=== PATIENT | female | born 1940 | race Caucasian/White ===

== ENCOUNTER 2016-06-26 08:09 | Outpatient (CLI) | payer MEDICARE, OTHER | END 2016-06-26 08:10 | disposition home or self-care (01) | DX: R03.0 Elevated blood-pressure reading, without diagnosis of hypertension (principal); E78.5 Hyperlipidemia, unspecified; Z79.899 Other long term (current) drug therapy ==

== ENCOUNTER 2016-09-09 10:34 | Outpatient (CLI) | payer MEDICARE, OTHER ==
--- NOTE | 2016-09-10 12:47 | Mammography Report ---
DIGITAL SCREENING MAMMOGRAM: 09/09/2016 CLINICAL INDICATION: A 75-year-old with family history of breast cancer for screening. COMPARISON: 01/2015, 12/2013, 06/2012, 05/2011, 10/2009, 04/2008, 11/2006. TECHNIQUE: Routine CC and MLO projections were obtained of the breasts. FINDINGS: Parenchymal tissue within the breasts is predominantly fatty replaced. There are no domina nt masses, suspicious microcalcifications, or secondary signs of malignancy. In comparison to the pre vious studies, there are no significant changes. IMPRESSION: NO MAMMOGRAPHIC EVIDENCE OF MALIGNANCY. NO SIGNIFICANT INTERVAL CHANGES. RECOMMENDATION: Screening mammography is recommended annually. BI-ADS category 1 - negative. STANDARD QUALIFYING STATEMENTS 1. This examination was reviewed with the aid of Computed-Aided Detection (CAD). 2. A negative or benign imaging report should not delay biopsy if clinically suspicious findings are present. Consider surgical consultation if warranted. More than 5% of cancers are not identified by i maging. 3. Dense breasts may obscure an underlying neoplasm. JOB #: [id number] EXT JOB #:[id number]
== END 2016-09-09 10:35 | disposition home or self-care (01) ==
LOC: DI 10:34
PROVIDERS: ATTEND Internal Medicine
DX: Z12.31 Encounter for screening mammogram for malignant neoplasm of breast (principal); Z80.3 Family history of malignant neoplasm of breast
CPT/HCPCS: 77067

== ENCOUNTER 2017-09-15 08:39 | Outpatient (CLI) | payer MEDICARE, OTHER ==
[2017-09-15 08:55] LABS: BASOPHILS # (AUTO) 0.1 10^3/uL (0.0-0.1); EOSINOPHILS # (AUTO) 0.1 10^3/uL (0.0-0.7); EOSINOPHILS % (AUTO) 1.3 %; HGB - HEMOGLOBIN 13.7 g/dL (12.0-16.0); LYMPHOCYTES # (AUTO) 2.4 10^3/uL (1.5-3.5); LYMPHOCYTES % (AUTO) 31.6 %; MEAN CORPUSCULAR HGB CONC 33.4 g/dL (32.0-36.0); MEAN CORPUSCULAR VOLUME 101.6 fL (81.0-99.0); MONOCYTES # (AUTO) 0.7 10^3/uL (0.0-1.0); MONOCYTES % (AUTO) 8.9 %; NEUTROPHILS # (AUTO) 4.3 10^3/uL (1.5-6.6); NEUTROPHILS % (AUTO) 57.2 %; PLT - PLATELET COUNT 233 10^3/uL (130-450); RED BLOOD COUNT 4.03 10^6/uL (4.20-5.40); RED CELL DISTRIBUTION WIDTH 13.5 % (12.0-15.0); WHITE BLOOD COUNT 7.5 x10^3/uL (4.8-10.8)
[2017-09-15 09:03] LABS: BILIRUBIN,URINE NEGATIVE (NEGATIVE); GLUCOSE, URINE (UA) NEGATIVE (NEGATIVE); KETONES,URINE (UA) TRACE mg/dL (NEGATIVE); LEUKOCYTE ESTERASE, URINE TRACE (NEGATIVE); NITRITE,URINE NEGATIVE (NEGATIVE); OCCULT BLOOD,URINE NEGATIVE (NEGATIVE); PH,URINE 6.5 PH (5.0-7.5); PROTEIN,URINE NEGATIVE (NEGATIVE); UROBILINOGEN,URINE 0.2 (NORMAL) E.U./dL (NORMAL)
[2017-09-15 09:07] LABS: CLARITY,URINE CLEAR (CLEAR)
[2017-09-15 09:14] LABS: ALBUMIN 4.3 g/dL (3.2-5.5); ALBUMIN/GLOBULIN RATIO 1.4 (1.0-2.2); ALKALINE PHOSPHATASE 45 IU/L (42-121); ALT ALANINE AMINOTRANSFERASE 20 IU/L (10-60); AST ASPARTATE AMINOTRANSFERASE 21 IU/L (10-42); BILIRUBIN,TOTAL 0.9 mg/dL (0.2-1.0); BUN - BLOOD UREA NITROGEN 15 mg/dL (6-20); CALCIUM 9.4 mg/dL (8.5-10.3); CARBON DIOXIDE - CO2 27 mmol/L (21-32); CHLORIDE 104 mmol/L (101-111); CHOL/HDL RATIO 2.3 (<4.4); CHOLESTEROL 189 mg/dL; CK- CREATINE KINASE 94 IU/L (22-269); CREATININE 0.7 mg/dL (0.4-1.0); GFR - MDRD 81 (>89); GLUCOSE 109 mg/dL (70-100); HDL CHOLESTEROL 83 mg/dL; LDL CHOLESTEROL,CALCULATED 85 mg/dL; SODIUM 140 mmol/L (135-145); TOTAL PROTEIN 7.4 g/dL (6.7-8.2); VLDL CHOLESTEROL 21 mg/dL
[2017-09-15 09:27] LABS: BACTERIA,URINE Moderate /HPF (None Seen); RBC,URINE 0-5 /HPF (0-5); SQUAMOUS EPITHELIAL CELL,UR MANY Squamous (<= Few)
[2017-09-15 09:28] LABS: MUCUS,URINE Few Strands
== END 2017-09-15 08:40 | disposition home or self-care (01) ==
LOC: LAB 08:39
PROVIDERS: ATTEND Internal Medicine
DX: Z79.899 Other long term (current) drug therapy (principal); Z13.6 Encounter for screening for cardiovascular disorders; J30.2 Other seasonal allergic rhinitis; E78.5 Hyperlipidemia, unspecified; E87.6 Hypokalemia; C44.91 Basal cell carcinoma of skin, unspecified
CPT/HCPCS: 36415; 80053; 80061; 81001; 81003; 82550; 83721; 84443; 85025; 87086

== ENCOUNTER 2017-10-12 13:20 | Outpatient (CLI) | payer MEDICARE, OTHER ==
--- NOTE | 2017-10-13 15:24 | Mammography Report ---
Procedure Date: 10/12/2017 Accession Number: [id number] / [id number] Procedure: MARTHA - Screening Mammo Dig Bilat CPT Code: FULL RESULT: EXAM: Screening Mammo Dig Bilat DATE: 10/12/2017 1:48 PM CLINICAL HISTORY: 76-year-old with family history of breast cancer for screening TECHNIQUE: Bilateral CC and MLO views were obtained. COMPARISON: 09/09/2016, 01/25/2015, 12/12/2013, 06/11/2012, 05/09/2011 FINDINGS: The breasts demonstrate scattered fibroglandular densities bilaterally. No suspicious masses, clustered microcalcifications, or regions of architectural distortion are identified. IMPRESSION: Negative examination RECOMMENDATION: Routine annual screening unless otherwise clinically indicated. BIRADS CATEGORY 1: Negative STANDARD QUALIFYING STATEMENTS: 1. This examination was reviewed with the aid of Computer-Aided Detection (CAD). 2. A negative or benign imaging report should not delay biopsy if clinically suspicious findings are present. Consider surgical consultation if warrented. More than 5% of cancers are not identified by imaging. 3. Dense breasts may obscure an underlying neoplasm.
== END 2017-10-12 13:21 | disposition home or self-care (01) ==
LOC: DI 13:20
PROVIDERS: ATTEND Internal Medicine
DX: Z12.31 Encounter for screening mammogram for malignant neoplasm of breast (principal)
CPT/HCPCS: 77067

== ENCOUNTER 2018-10-05 08:12 | Outpatient (CLI) | payer MEDICARE, OTHER ==
[2018-10-05 09:04] LABS: BILIRUBIN,URINE NEGATIVE (NEGATIVE); GLUCOSE, URINE (UA) NEGATIVE (NEGATIVE); KETONES,URINE (UA) NEGATIVE (NEGATIVE); LEUKOCYTE ESTERASE, URINE NEGATIVE (NEGATIVE); NITRITE,URINE NEGATIVE (NEGATIVE); OCCULT BLOOD,URINE NEGATIVE (NEGATIVE); PH,URINE 6.5 PH (5.0-7.5); PROTEIN,URINE NEGATIVE (NEGATIVE); UROBILINOGEN,URINE 0.2 (NORMAL) E.U./dL (NORMAL)
[2018-10-05 09:06] LABS: CLARITY,URINE CLEAR (CLEAR)
[2018-10-05 09:34] LABS: ALBUMIN 4.6 g/dL (3.2-5.5); ALBUMIN/GLOBULIN RATIO 1.8 (1.0-2.2); ALKALINE PHOSPHATASE 46 IU/L (42-121); ALT ALANINE AMINOTRANSFERASE 22 IU/L (10-60); AST ASPARTATE AMINOTRANSFERASE 22 IU/L (10-42); BILIRUBIN,TOTAL 0.9 mg/dL (0.2-1.0); BUN - BLOOD UREA NITROGEN 20 mg/dL (6-20); CALCIUM 9.1 mg/dL (8.5-10.3); CARBON DIOXIDE - CO2 26 mmol/L (21-32); CHLORIDE 104 mmol/L (101-111); CHOL/HDL RATIO 2.4 (<4.4); CHOLESTEROL 182 mg/dL; CK- CREATINE KINASE 144 IU/L (22-269); CREATININE 0.8 mg/dL (0.4-1.0); GFR - MDRD 69 (>89); GLUCOSE 108 mg/dL (70-100); HDL CHOLESTEROL 76 mg/dL; LDL CHOLESTEROL,CALCULATED 91 mg/dL; LDL/HDL RATIO 1.2 (<4.4); SODIUM 143 mmol/L (135-145); TOTAL PROTEIN 7.2 g/dL (6.7-8.2); VLDL CHOLESTEROL 15 mg/dL
[2018-10-05 09:43] LABS: BASOPHILS # (AUTO) 0.1 10^3/uL (0.0-0.1); BASOPHILS % (AUTO) 0.8 %; EOSINOPHILS # (AUTO) 0.1 10^3/uL (0.0-0.7); EOSINOPHILS % (AUTO) 1.5 %; HGB - HEMOGLOBIN 13.5 g/dL (12.0-16.0); LYMPHOCYTES % (AUTO) 29.5 %; MEAN CORPUSCULAR HEMOGLOBIN 33.9 pg (27.0-31.0); MEAN CORPUSCULAR HGB CONC 32.8 g/dL (32.0-36.0); MEAN CORPUSCULAR VOLUME 103.5 fL (81.0-99.0); MEAN PLATELET VOLUME 10.4 fL (7.9-10.8); MONOCYTES # (AUTO) 0.6 10^3/uL (0.0-1.0); MONOCYTES % (AUTO) 9.3 %; NEUTROPHILS # (AUTO) 3.9 10^3/uL (1.5-6.6); NEUTROPHILS % (AUTO) 58.6 %; PLT - PLATELET COUNT 234 10^3/uL (130-450); RED BLOOD COUNT 3.98 10^6/uL (4.20-5.40); RED CELL DISTRIBUTION WIDTH 12.9 % (12.0-15.0); THYROID STIMULATING HORMONE 2.37 uIU/mL (0.34-5.60); WHITE BLOOD COUNT 6.6 x10^3/uL (4.8-10.8)
[2018-10-05 09:54] LABS: FOLATE 15.6 ng/mL (5.90 - >24.8)
[2018-10-05 10:01] LABS: HB2 TOTAL 14.4 g/dL; HEMOGLOBIN A1C 0.59 g/dL; HEMOGLOBIN A1C % 5.9 % (4.6-6.2)
== END 2018-10-05 08:13 | disposition home or self-care (01) ==
LOC: LAB 08:12
PROVIDERS: ATTEND Internal Medicine
DX: I10 Essential (primary) hypertension (principal); Z13.6 Encounter for screening for cardiovascular disorders; Z79.899 Other long term (current) drug therapy; D75.89 Other specified diseases of blood and blood-forming organs; R73.01 Impaired fasting glucose; E78.5 Hyperlipidemia, unspecified
CPT/HCPCS: 36415; 80053; 80061; 81001; 81003; 82550; 82607; 82746; 83036; 83721; 84443; 85025; 87086

== ENCOUNTER 2018-10-27 14:11 | Outpatient (CLI) | payer MEDICARE, OTHER ==
--- NOTE | 2018-10-28 09:10 | Mammography Report ---
Reason: SCREENING MAMMO Procedure Date: 10/27/2018 Accession Number: [id number] / [id number] Procedure: MARTHA - Screening Mammo w/Leon CPT Code: FULL RESULT: EXAM: Screening Mammo w/Leon DATE: 10/27/2018 3:45 PM CLINICAL HISTORY: Screening encounter. Family history of breast cancer in the mother at the age of 80 and a daughter at the age of 40. TECHNIQUE: (B) - Bilateral CC and MLO views were obtained. COMPARISON: 10/12/2017 through 12/12/2013. PARENCHYMAL PATTERN: (A) - The breast(s) demonstrate(s) scattered fibroglandular densities. FINDINGS: There are no suspicious masses, calcifications, or areas of distortion. IMPRESSION: Negative examination. BI-RADS category 1. RECOMMENDATION: (ANNUAL) - Recommend routine annual screening mammography. BI-RADS CATEGORY: (1) - Negative. STANDARD QUALIFYING STATEMENTS: 1. This examination was not reviewed with the aid of Computer-Aided Detection (CAD). 2. A negative or benign imaging report should not preclude biopsy if clinically suspicious findings are present. 3. Dense breasts may obscure an underlying neoplasm. 4. This examination was reviewed with the aid of 3D breast imaging (tomosynthesis).
== END 2018-10-27 14:12 | disposition home or self-care (01) ==
LOC: DI 14:11
PROVIDERS: ATTEND Internal Medicine
DX: Z12.31 Encounter for screening mammogram for malignant neoplasm of breast (principal); Z80.3 Family history of malignant neoplasm of breast
CPT/HCPCS: 77063; 77067

== ENCOUNTER 2022-05-26 08:03 | Outpatient (CLI) | payer MEDICARE, OTHER ==
[2022-05-26 08:25] LABS: BASOPHILS # (AUTO) 0.1 10^3/uL (0.0-0.1); BASOPHILS % (AUTO) 0.8 %; EOSINOPHILS # (AUTO) 0.1 10^3/uL (0.0-0.7); EOSINOPHILS % (AUTO) 1.9 %; HCT - HEMATOCRIT 39.5 % (37.0-47.0); HGB - HEMOGLOBIN 12.6 g/dL (12.0-16.0); LYMPHOCYTES # (AUTO) 2.6 10^3/uL (1.5-3.5); LYMPHOCYTES % (AUTO) 33.8 %; MEAN CORPUSCULAR HEMOGLOBIN 33.8 pg (27.0-31.0); MEAN CORPUSCULAR HGB CONC 31.9 g/dL (32.0-36.0); MEAN CORPUSCULAR VOLUME 105.9 fL (81.0-99.0); MEAN PLATELET VOLUME 9.9 fL (7.9-10.8); MONOCYTES # (AUTO) 0.9 10^3/uL (0.0-1.0); MONOCYTES % (AUTO) 11.5 %; NEUTROPHILS # (AUTO) 3.9 10^3/uL (1.5-6.6); NEUTROPHILS % (AUTO) 51.6 %; PLT - PLATELET COUNT 259 10^3/uL (130-450); RED BLOOD COUNT 3.73 10^6/uL (4.20-5.40); RED CELL DISTRIBUTION WIDTH 13.3 % (12.0-15.0); WHITE BLOOD COUNT 7.5 x10^3/uL (4.8-10.8)
[2022-05-26 08:47] LABS: ALBUMIN 4.2 g/dL (3.2-5.5); ALBUMIN/GLOBULIN RATIO 1.5 (1.0-2.2); ALKALINE PHOSPHATASE 52 IU/L (42-121); ALT ALANINE AMINOTRANSFERASE 20 IU/L (10-60); AST ASPARTATE AMINOTRANSFERASE 20 IU/L (10-42); BILIRUBIN,TOTAL 1.1 mg/dL (0.2-1.0); BUN - BLOOD UREA NITROGEN 24 mg/dL (6-20); CALCIUM 8.8 mg/dL (8.5-10.3); CARBON DIOXIDE - CO2 28 mmol/L (21-32); CHLORIDE 103 mmol/L (101-111); CHOL/HDL RATIO 6.1 (<4.4); CHOLESTEROL 115 mg/dL; CK- CREATINE KINASE 75 IU/L (22-269); CREATININE 0.8 mg/dL (0.4-1.0); GFR - MDRD 69 (>89); GLUCOSE 118 mg/dL (70-100); HDL CHOLESTEROL 19 mg/dL; LDL CHOLESTEROL,CALCULATED 60 mg/dL; LDL/HDL RATIO 3.2 (<4.4); POTASSIUM 3.6 mmol/L (3.5-5.0); SODIUM 138 mmol/L (135-145); TRIGLYCERIDES 180 mg/dL; VLDL CHOLESTEROL 36 mg/dL
[2022-05-26 08:48] LABS: THYROID STIMULATING HORMONE 3.01 uIU/mL (0.34-5.60)
[2022-05-26 12:45] LABS: ESTIMATED AVERAGE GLUCOSE 91 mg/dL (70-100); HEMOGLOBIN A1c% 4.8 % (4.27-6.07)
== END 2022-05-26 08:04 | disposition home or self-care (01) ==
LOC: LAB 08:03
PROVIDERS: ATTEND Internal Medicine
DX: Z00.00 Encounter for general adult medical examination without abnormal findings (principal); F41.9 Anxiety disorder, unspecified; C44.91 Basal cell carcinoma of skin, unspecified; E78.5 Hyperlipidemia, unspecified; I10 Essential (primary) hypertension; R73.01 Impaired fasting glucose; D75.89 Other specified diseases of blood and blood-forming organs; R26.89 Other abnormalities of gait and mobility; J30.2 Other seasonal allergic rhinitis; Z79.899 Other long term (current) drug therapy
CPT/HCPCS: 36415; 80053; 80061; 82550; 82607; 83036; 83721; 84443; 85025

== ENCOUNTER 2024-01-31 09:58 | Inpatient (IN) ==
--- NOTE | 2024-01-31 10:02 | ED Physician Documentation ---
History of Present Illness Stated complaint Stated Complaint: AMS Chief complaint Chief Complaint: Neuro Additonal information Additional information: 83-year-old female with history of repeated falls, vitamin B12 deficiency anemia, regular alcohol consumption, PVD with chronic poor lower extremity circulation, depression presents with AMS with speech change. She was last seen normal at 8pm last night. Family found her this morning at home confused, speaking in what seemed like word salad. No clear trauma, F/C, SOB, focal numbness or weakness, lateralizing findings. CBG in 90s en route. No other currently available information. Lower extremity poor circulation is chronic. Patient here does not seem in pain but is confused and cannot provide further information. Note there are pictures in chart from January 20 with chronic bilateral foot discoloration. Review of Systems ROS Patient is altered and cannot provide further information. Meds/Allgy Home Medications Ambulatory Orders Medication Instructions Recorded Confirmed hydrochlorothiazide 25 mg tablet 25 mg PO QAM 01/21/24 01/31/24 simvastatin 20 mg tablet 20 mg PO QDAY 01/21/24 01/31/24 Allergies Allergies Allergy/AdvReac Type Severity Reaction Status Date / Time Penicillins Allergy Unknown Unknown Verified 01/31/24 10:32 [facility] Social History Social History (Updated 01/21/24 @ 08:31 by Lanre Ferreira MA) Smoking Status: Unknown if ever smoked Second hand tobacco smoke exposure: No Do you dip or chew tobacco?: No Do you vape?: No Living arrangement: At home Marital Status: Living Condition: With spouse/s.o. Relationship: Child Home Mobility Equipment: Wheeled walker Do you feel safe in your home environment?: Yes Suffered physical, verbal, emotional, or financial abuse?: No ETOH Use: Wine Frequency: Daily Number of Amount/day: 2 Substance Use: denies use Are you sexually active?: No Retired: Yes Service: No Are you following a diet prescribed by a doctor: No Are you following a special diet: No Exam Exam Const: no acute distress, non toxic appearing; confused, unable to participate in history Eyes: PERRLA, EOMI ENT: mucous membranes moist Neck: supple, non-tender Resp: no respiratory distress, clear to auscultation bilaterally Card: regular rate and rhythm, no murmurs Abd: non tender diffusely, no rigidity or rebound or guarding Back: no T or L spine tenderness, no CVA tenderness bilaterally Extrem: no deformities, no swelling bilateral lower extremities; chronic poor circulation consistent with chart images to distal extremities Neuro: alert, not oriented. 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 No rotatory or vertical nystagmus. Normal tone all extremities. Sensation intact to light touch all extremities. No ankle clonus bilaterally. 5/5 motor strength all extremities wit h equal movement, no lateralizing findings. Coordination difficult to assess but appears intact. No clear dysarthria however words are nonsensical and without clear order. Skin: no rash, warm and dry Results Vitals Vitals: Vital Signs - 24 hr 01/31/24 10:21 01/31/24 12:35 Temperature 37.0 C Temperature Source Temporal Artery Scan Pulse Rate 115 H 118 H Respiratory Rate 20 19 Blood Pressure 134/94 H 137/84 H O2 Saturation 98 98 O2 Source Room air Room air Pain Intensity 0 0 Oxygen O2 Source Room air Labs Labs: Laboratory Tests 01/31/24 10:29 WBC 14.4 H RBC 3.10 L Hgb 10.3 L Hct 33.2 L MCV 107.1 H MCH 33.2 H MCHC 31.0 L RDW 15.4 H Plt Count 99 L MPV 12.1 H Neut # (Auto) 9.9 H Lymph # (Auto) 1.9 [place] # (Auto) 2.5 H Eos # (Auto) 0.0 Baso # (Auto) 0.1 Absolute Nucleated RBC 0.00 Nucleated RBC % 0.0 Manual Slide Review Indicated RBC Morph Micro Appear 2+ ANISOCYTOSIS PT 12.8 H INR 1.2 APTT 24.1 L Sodium 139 Potassium 3.9 Chloride 106 Carbon Dioxide 25 Anion Gap 8.0 BUN 23 H Creatinine 0.6 Estimated GFR (MDRD) 95 Glucose 97 Calcium 8.9 Total Bilirubin 0.9 AST 16 ALT 10 Alkaline Phosphatase 53 Troponin I High Sens 7.4 Total Protein 6.1 L Albumin 3.4 Globulin 2.7 Albumin/Globulin Ratio 1.3 Triglycerides 314 Cholesterol 92 LDL Cholesterol, Calc Not Reportable VLDL Cholesterol 63 HDL Cholesterol 3 L LDL/HDL Ratio Not Reportable Cholesterol/HDL Ratio 30.7 Ethyl Alcohol < 10.0 PD Medical Decision Making ED course ED course: This patient presents with altered mental status and speech changes above, with last known normal 8 PM last night, arriving well outside thrombolytic window. She does not show clear LVO findings on exam. Ischemic stroke is possible, and we are obtaining CT head, CTA head and neck. I have considered broad di fferential as well including but not limited to intravascular volume depletion, delirium, UTI, electrolyte derangements, seizure, brain mass, renal failure, intoxication, among others. In addition to CT, we are obtaining chest x-ray, EKG, troponin, CBC, CMP, coags, ethanol level, urinalysis. I am giving fluids and will closely reassess. EKG shows atrial flutter versus fibrillation with rate within normal limits, no clear acute ischemia or immediately concerning interval prolongation in this setting. Labs: INR WNL. PTT mildly low. CBC with neutrophilic leukocytosis, mild anemia similar to prior earlier in January, macrocytic, thrombocytopenia to roughly 100 without clear bleeding clinically. CMP grossly reassuring. Troponin reassuring in clinical context. Ethanol negative. I agree with radiology reads of imaging on my independent review of imaging. CXR: "FINDINGS: Surgical changes and devices: None. Lungs and pleura: No pleural effusions or pneumothorax. Patchy bibasilar atelectasis. Mediastinum: Mediastinal contours appear normal. Heart size is normal. Bones and chest wall: No suspicious bony lesions. Overlying soft tissues appear unremarkable. IMPRESSION: Patchy bibasilar atelectasis Reviewed by: Savage Rosales MD on 01/31/2024 11:02 AM PDT" CT: note delay due to reported technical challenges; I requested this soon after patient arrival, and staff aware and working on it. Again, note patient does not show clear LVO signs to suggest thrombectomy candidacy and is outside thrombolytic window. hCT: "FINDINGS: Image quality: Excellent. CSF spaces: Basal cisterns are patent. No extra-axial fluid collections. Ventricles are normal in size and shape. Brain: No midline shift. No intracranial masses or hemorrhage. Whitman-white matter interface is normal. Intracranial carotid calcifications. Age-related volume loss and small vessel ischemic change. Skull and face: Calvarium and visualized facial bones are intact, without suspicious lesions. Sinuses: Visualized sinuses and mastoids are clear. IMPRESSION: No acute intracranial pathology. Reviewed by: Savage Rosales MD on 01/31/2024 12:37 PM PDT" CTA head/neck: "HEAD CT ANGIOGRAPHY: Anterior circulation: Intracranial internal carotid arteries are normal in size and flow. The flow within the paired anterior cerebral arteries is normal and symmetric. The flow within the middle cerebral arteries is normal and symmetric. The anterior communicating artery is seen. No aneurysms are seen. Posterior circulation: Visualized portions of the vertebral arteries demonstrate normal caliber, and join to form a normal appearing basilar artery. Flow within the posterior cerebral arteries is normal and symmetric. No aneurysms are seen. NECK CT ANGIOGRAPHY: Carotid system: The great vessels demonstrate a conventional anatomy as they arise from the aortic arch. The origins of the common carotid arteries appear patent. The common carotid arteries demonstrate normal caliber and courses. The bifurcation regions are both widely patent. The internal carotid arteries demonstrate normal calibers and courses. Posterior circulation: The origins of the vertebral arteries both appear widely patent. The more superior extracranial portions of both vertebral arteries also demonstrate normal courses and calibers. They join to form a normal appearing basilar artery. Soft tissues: Visualized neck soft tissues demonstrate no suspicious abnormalities. Bones: No suspicious bony lesions. Visualized cervical spine appears normally aligned. Diffuse cervical spondylitic change. Disc osteophyte complex at C4-C5 and C5-C6 results in severe canal stenosis at these levels, eccentric to the right. IMPRESSION: No significant intracranial arterial abnormality is seen. No significant abnormality is seen within the arteries of the neck. Cervical spondylosis with severe canal stenosis at C4-C5 and C5-C6. The estimate of stenosis included in the report of the imaging study was calculated using the NASCET method Reviewed by: Savage Rosales MD on 01/31/2024 12:40 PM PDT" Giving asprin. Note I was told patient had episode of bradycardia to 30s to 40s in scanner. This had not happened previous to this here, and she did not have clear symptoms during this. I repeated EKG however which shows atrial fibrillation currently with rate to 101, no clear acute ischemia. This is not consistent currently with symptomatic bradycardia. I spoke with Dr. Champagne at 1253; she reviewed case with me and kindyl accepts for admission. At this juncture, stroke is still possible, with patient outside room window, and she may benefit from inpatient MRI, echo, lipids and hemoglobin A1c; undifferentiated AMS is still possible though. Patient overall stable. NOTE intermittent logged tachycardia is NOT accurate; machine is picking up some T- waves as QRS complexes; HR is in 70s-90s on multiple assessments by myself, with afib. No meninegal signs. Note while I think Wernicke's encephalopathy is less likely, given history of reported alcohol use, I am giving 500 mg IV thiamine empirically. UA pending at this time. Discharge Plan Discharge Patient Disposition: 66 [facility] DC/Xfer Clinical Impression: Altered mental status Prescriptions: No Action simvastatin 20 mg tablet 20 mg PO QDAY Patient Comments: take 1 tablet by mouth at bedtime hydrochlorothiazide 25 mg tablet 25 mg PO QAM Patient Comments: take 1 tablet by mouth daily Print Language: Portuguese
[2024-01-31 10:36] LABS: BASOPHILS # (AUTO) 0.1 10^3/uL (0.0-0.1); BASOPHILS % (AUTO) 0.4 %; HCT - HEMATOCRIT 33.2 % (37.0-47.0); HGB - HEMOGLOBIN 10.3 g/dL (12.0-16.0); LYMPHOCYTES # (AUTO) 1.9 10^3/uL (1.5-3.5); LYMPHOCYTES % (AUTO) 12.9 %; MEAN CORPUSCULAR HEMOGLOBIN 33.2 pg (27.0-31.0); MEAN CORPUSCULAR VOLUME 107.1 fL (81.0-99.0); MEAN PLATELET VOLUME 12.1 fL (7.9-10.8); MONOCYTES # (AUTO) 2.5 10^3/uL (0.0-1.0); MONOCYTES % (AUTO) 17.3 %; NEUTROPHILS # (AUTO) 9.9 10^3/uL (1.5-6.6); NEUTROPHILS % (AUTO) 68.7 %; PLT - PLATELET COUNT 99 10^3/uL (130-450); RED CELL DISTRIBUTION WIDTH 15.4 % (12.0-15.0); WHITE BLOOD COUNT 14.4 x10^3/uL (4.8-10.8)
[2024-01-31 10:39] LABS: RBC MORPHOLOGY (MULTIPLE) 2+ ANISOCYTOSIS (NORMAL); SLIDE REVIEW? Indicated
[2024-01-31 10:49] LABS: ALBUMIN 3.4 g/dL (3.2-5.5); ALBUMIN/GLOBULIN RATIO 1.3 (1.0-2.2); ALKALINE PHOSPHATASE 53 IU/L (42-121); ALT ALANINE AMINOTRANSFERASE 10 IU/L (10-60); AST ASPARTATE AMINOTRANSFERASE 16 IU/L (10-42); BILIRUBIN,TOTAL 0.9 mg/dL (0.2-1.0); BUN - BLOOD UREA NITROGEN 23 mg/dL (6-20); CALCIUM 8.9 mg/dL (8.5-10.3); CARBON DIOXIDE - CO2 25 mmol/L (21-32); CHLORIDE 106 mmol/L (101-111); CREATININE 0.6 mg/dL (0.6-1.3); ETOH - ETHANOL < 10.0 mg/dL; GFR - MDRD 95 (>89); GLUCOSE 97 mg/dL (74-104); POTASSIUM 3.9 mmol/L (3.5-4.5); SODIUM 139 mmol/L (135-145); TOTAL PROTEIN 6.1 g/dL (6.4-8.9)
[2024-01-31 10:51] LABS: PARTIAL THROMBOPLASTIN TIME 24.1 secs (24.9-33.3)
[2024-01-31 10:56] LABS: INR 1.2 (0.8-1.2); PT - PROTHROMBIN TIME 12.8 secs (9.9-12.6)
--- NOTE | 2024-01-31 11:03 | XRAY Report ---
PROCEDURE: XR Chest 1V INDICATIONS: stroke work up TECHNIQUE: One view of the chest was acquired. COMPARISON: None. FINDINGS: Surgical changes and devices: None. Lungs and pleura: No pleural effusions or pneumothorax. Patchy bibasilar atelectasis. Mediastinum: Mediastinal contours appear normal. Heart size is normal. Bones and chest wall: No suspicious bony lesions. Overlying soft tissues appear unremarkable. IMPRESSION: Patchy bibasilar atelectasis Reviewed by: Savage Rosales MD on 01/31/2024 11:02 AM PDT Approved by: Savage Rosales MD on 01/31/2024 11:02 AM PDT Station ID: [id number]
[2024-01-31] MEDS ORDERED: iohexoL-300 100 ML VIAL ONE (11:10)
[2024-01-31] MEDS: SODIUM CHLORIDE 0.9% 500 ML IV STA (11:59)
--- NOTE | 2024-01-31 12:38 | CT Report ---
PROCEDURE: CT Head WO INDICATIONS: expressive aphasia, outside thrombolytic window TECHNIQUE: Noncontrast 4.5 mm thick angled axial sections acquired from the foramen magnum to the vertex. For r adiation dose reduction, the following was used: automated exposure control, adjustment of mA and/or kV according to patient size. COMPARISON: Head CT without contrast dated 01/08/2024. FINDINGS: Image quality: Excellent. CSF spaces: Basal cisterns are patent. No extra-axial fluid collections. Ventricles are normal in size and shape. Brain: No midline shift. No intracranial masses or hemorrhage. Whitman-white matter interface is norm al. Intracranial carotid calcifications. Age-related volume loss and small vessel ischemic change. Skull and face: Calvarium and visualized facial bones are intact, without suspicious lesions. Sinuses: Visualized sinuses and mastoids are clear. IMPRESSION: No acute intracranial pathology. Reviewed by: Savage Rosales MD on 01/31/2024 12:37 PM PDT Approved by: Savage Rosales MD on 01/31/2024 12:37 PM PDT Station ID: [id number]
--- NOTE | 2024-01-31 12:41 | CT Report ---
PROCEDURE: CT Angio Head/Neck INDICATIONS: expressive aphasia, outside thrombolytic window TECHNIQUE: After the administration of intravenous contrast, 1 mm thick sections acquired from the aortic arch t hrough the [place]. 3-dimensional [id number] (MIP) and/or volume renderin g reformats were acquired of the central intracranial vasculature and neck separately. For radiation dose reduction, the following was used: automated exposure control, adjustment of mA and/or kV acco rding to patient size. CONTRAST: omni 300, 80 COMPARISON: CT head from the same date. FINDINGS: Image quality: Diagnostic. HEAD CT: CSF Spaces: Basal cisterns are patent. No extra-axial fluid collections. Ventricles are normal in size and shape. Brain: No significant abnormality is seen for scanning technique. Skull and face: Calvarium and visualized facial bones appear intact, without suspicious lesions. Sinuses: Visualized sinuses and mastoids are clear. HEAD CT ANGIOGRAPHY: Anterior circulation: Intracranial internal carotid arteries are normal in size and flow. The flow within the paired anterior cerebral arteries is normal and symmetric. The flow within the middle cer ebral arteries is normal and symmetric. The anterior communicating artery is seen. No aneurysms are seen. Posterior circulation: Visualized portions of the vertebral arteries demonstrate normal caliber, and join to form a normal appearing basilar artery. Flow within the posterior cerebral arteries is norm al and symmetric. No aneurysms are seen. NECK CT ANGIOGRAPHY: Carotid system: The great vessels demonstrate a conventional anatomy as they arise from the aortic a rch. The origins of the common carotid arteries appear patent. The common carotid arteries demonstr ate normal caliber and courses. The bifurcation regions are both widely patent. The internal caroti d arteries demonstrate normal calibers and courses. Posterior circulation: The origins of the vertebral arteries both appear widely patent. The more young perior extracranial portions of both vertebral arteries also demonstrate normal courses and calibers. They join to form a normal appearing basilar artery. Soft tissues: Visualized neck soft tissues demonstrate no suspicious abnormalities. Bones: No suspicious bony lesions. Visualized cervical spine appears normally aligned. Diffuse cer vical spondylitic change. Disc osteophyte complex at C4-C5 and C5-C6 results in severe canal stenosis at these levels, eccentric to the right. IMPRESSION: No significant intracranial arterial abnormality is seen. No significant abnormality is seen within the arteries of the neck. Cervical spondylosis with severe canal stenosis at C4-C5 and C5-C6. The estimate of stenosis included in the report of the imaging study was calculated using the NASCET method Reviewed by: Savage Rosales MD on 01/31/2024 12:40 PM PDT Approved by: Savage Rosales MD on 01/31/2024 12:40 PM PDT Station ID: [id number]
[2024-01-31 13:24] LABS: CHOL/HDL RATIO 30.7 (<4.4); CHOLESTEROL 92 mg/dL; HDL CHOLESTEROL 3 mg/dL; TRIGLYCERIDES 314 mg/dL; VLDL CHOLESTEROL 63 mg/dL
--- NOTE | 2024-01-31 13:44 | HISTORY & PHYSICAL EXAMINATION ---
Chief Complaint Chief Complaint Chief Complaint: Speech changes History of Present Illness History of Present Illness HPI Comment/Other: Patient is a 83-year-old female with a history of vitamin B12 deficiency, chronic alcohol use, peripheral vascular disease who presented after family found her confused and speaking and what was described as "word salad". When patient was seen, she was turning towards voice, but was unable to provide any meaningful history. Her home phone number, as well as her next of kin phone number, has been Sonny Naidu was tried for further history, without success. Due to her history of chronic alcohol use, there was some concern for Warnicke's encephalopathy. She was started on high-dose IV supplementation at that time. Due to this possible expressive aphasia, patient was worked up for stroke. Last known normal was 8 PM last night according to a family member. On admission, patient was vitally stable, blood pressure was 137/84, heart rate was in the 100s. Her EKG did show some evidence of atrial fibrillation, although this is not a diagnosis she carries. Her pulse was 110-[address] head and CTA were done which did not show any acute abnormalities. After discussion with the ED physician, Dr. Meade, decision was made for further stroke workup and inpatient admission. Meds/Allgy Home Medications Ambulatory Orders Medication Instructions Recorded Confirmed hydrochlorothiazide 25 mg tablet 25 mg PO QAM 01/21/24 01/31/24 simvastatin 20 mg tablet 20 mg PO QDAY 01/21/24 01/31/24 Allergies Allergies Allergy/AdvReac Type Severity Reaction Status Date / Time Penicillins Allergy Unknown Unknown Verified 01/31/24 10:32 [facility] Social History Social History (Updated 01/21/24 @ 08:31 by Lanre Ferreira MA) Smoking Status: Unknown if ever smoked Second hand tobacco smoke exposure: No Do you dip or chew tobacco?: No Do you vape?: No Living arrangement: At home Marital Status: Living Condition: With spouse/s.o. Relationship: Child Home Mobility Equipment: Wheeled walker Do you feel safe in your home environment?: Yes Suffered physical, verbal, emotional, or financial abuse?: No ETOH Use: Wine Frequency: Daily Number of Amount/day: 2 Substance Use: denies use Are you sexually active?: No Retired: Yes Service: No Are you following a diet prescribed by a doctor: No Are you following a special diet: No POLST Patient has POLST: No Review of Systems Status of ROS: unobtainable due to medical condition (Patient is not answering questions or following commands at this time, mean) Exam Constitutional normal general appearance, distress noted (mild) and abnormal body habitus (thin) HENMT normocephalic, head/scalp atraumatic and external ears normal Eyes PERRL, EOMs intact bilaterally (would not comply with H test, but looking around spontaneously) and no papilledema Neck/C-Spine visual inspection normal and trachea midline Respiratory breath sounds equal bilaterally, normal respiratory effort and clear to auscultation bilaterally Cardiovascular normal heart rate noted, rhythm abnormal (irregular), murmur noted and edema noted Gastrointestinal abdomen normal to inspection, abdomen soft to palpation, normoactive bowel sounds and no hepatosplenomegaly Genitourinary no CVA tenderness and bladder abnormal to palpation (patient with mild suprapubic tenderness on exam) Back/Pelvis spine normal to inspection, thoracic spine tenderness noted and lumbar spine tenderness noted Extremities abnormal to inspection (blanchable vasculitic rash purple-blue in color; pulses felt 1+ DP and PT) Neurology focal motor deficit noted (unable to complete physical exam as patient not compliant with instruction) and speech abnormality noted (expressive aphasia), (receptive aphasia) and (garbled) Psychiatry orientation abnormal (disoriented to person), (disoriented to place) and (disoriented to time) and uncooperative Skin rash noted (bilateral lower extremities) and mottling noted (extremities) Sepsis Event Note (H) Evaluation Current Stage of Sepsis: Ruled out Conclusion/Plan Problem List (1) Combined receptive and expressive aphasia: Plan: Patient presented from home after family found her confused, with garbled speech. Currently, she is having both expressive and receptive aphasia. Last known normal was yesterday evening around [address] head, CTA negative for any acute infarcts. Will continue to workup stroke with MRI of the brain. Allow permissive hypertension with blood pressure of 220/120 today. Will restart antihypertensive regimen tomorrow morning. Echo ordered, pending. Patient will be placed on cardiac telemetry. Repeat EKG ordered, pending. Patient received aspirin. Will continue 81 mg daily. Continue statin. Lipid panel ordered, pending. Physical therapy, Occupational Therapy, speech therapy ordered, pending. (2) Acute metabolic encephalopathy: Plan: Likely due to possible CVA or TIA as noted above. Patient does also have a extensive history of alcohol use; we will treat her concurrently for Wernicke's. She will be continued on thiamine injections 500 mg 3 times a day for 2 days, followed by 250 mg of thiamine daily. Patient does have a leukocytosis, no respiratory symptoms. No rashes that appear infected. UA is pending. (3) Atrial fibrillation: Plan: Initial EKG does show new onset atrial fibrillation. Repeat EKG pending. Patient remains on telemetry. If this is the case, and patient does have a CVA, there is a chance it may be cardioembolic. [id number] of 4, anticoagulation would be recommended. However has blood score is 4, and patient is at high risk of falling due to her chronic alcohol use, and is at risk for major bleeding. Will have discussion with patient's and patient if her mental status improves about initiating anticoagulation. Qualifiers: Atrial fibrillation type: unspecified Qualified Code(s): I48.91 - Unspecified atrial fibrillation (4) Leukocytosis: Plan: Chest x-ray with patchy bibasilar atelectasis. No respiratory symptoms at this time, patient is on room air. No obvious skin ulcerations that appear infected. She does have a blanchable vasculitic rash on her bilateral lower extremities which is apparently chronic and likely due to underlying PVD. UA pending. Will treat for UTI if positive. Qualifiers: Leukocytosis type: unspecified Qualified Code(s): D72.829 - Elevated white blood cell count, unspecified (5) Anemia, B12 deficiency: Plan: Patient has a known history of vitamin B12 per family practice notes in the outpatient setting. She is being actively treated for this. Continue to trend hemoglobin, transfuse if less than 7. Qualifiers: Vitamin B12 deficiency anemia type: unspecified B12 deficiency Q ualified Code(s): D51.9 - Vitamin B12 deficiency anemia, unspecified (6) Chronic alcohol use: Plan: Patient has a history of chronic alcohol use per family med documentation. She did see her family Dr. Kenia Avendaño on 01/20. Here it was stated that she drinks 4 bottles of wine per week. She was actively working on reducing her alcohol consumption. CIWA protocol in place. Will try to abstain from using Ativan as to not worsen her altered mentation. Continue thiamine supplementation as above. Will also start a vitamin. (7) Hypertension: Plan: Patient is on a antihypertensive for outside records. Allow permissive hypertension at this time to 220/120, will continue to implement regimen when able. Qualifiers: Hypertension type: primary hypertension Qualified Code(s): I10 - Essential (primary) hypertension (8) Hyperlipidemia: Plan: Patient was on low intensity statin as an outpatient, high intensity statin initiated as stated above. Qualifiers: Hyperlipidemia type: unspecified Qualified Code(s): E78.5 - Hyperlipidemia, unspecified (9) Peripheral vascular disease: Plan: Patient with blanchable vasculitic rash on bilateral lower extremities. Family medicine notes reviewed from outpatient and it appears to be a chronic problem Duplex ultrasound and Dopplers were ordered as an outpatient. Continue to follow up outpatient. Lab Results Lab results reviewed: Yes 01/31/24 10:29 01/31/24 10:29 Diagnostic Imaging Results Diagnostic Imaging Results: positive Final report reviewed Diagnostic Imaging Results Comments: CT head, CTA with no acute abnormalities. MRI pending. EKG Results EKG Interpreted Independently: Yes EKG Findings: Possible new onset atrial fibrillation noted on EKG. Repeat pending, patient is on telemetry. Core Measures Anticipated LOS I expect patient to be DC'd or transferred within 96 hours.: Yes DVT/VTE - Prophylaxis VTE/DVT Device ordered at admit?: Yes VTE/DVT Prophylaxis med ordered at admit?: Yes Stroke - Rehab Assessment Rehab services assessment to be ordered?: Yes AMI - Statin at Admit Aspirin Prescribed on Admit: Yes
[2024-01-31] MEDS: MIDAZOLAM 2 MG/2 ML VIAL IVP STA (13:53)
[2024-01-31] MEDS: THIAMINE INJ 500 MG in SODIUM CHLORIDE 0.9% 50 ML IV STA (13:55)
[2024-01-31] MEDS: ASPIRIN CHEW 81 MG TABLET PO STA ×2 (14:03→14:08)
[2024-01-31 14:27] LABS: ESTIMATED AVERAGE GLUCOSE 80 mg/dL (70-100); HEMOGLOBIN A1c% 4.4 % (4.27-6.07)
[2024-01-31 15:22] LABS: THYROID STIMULATING HORMONE 4.72 uIU/mL (0.34-5.60)
[2024-01-31] MEDS: iohexoL-300 100 ML VIAL IVP ONE (16:24)
[2024-01-31] MEDS: ATORVASTATIN 40 MG TABLET PO SCH (21:28)
[2024-01-31] MEDS: THIAMINE 100 MG/1 ML 2 ML MDV IVP SCH (21:29)
[2024-01-31] MEDS: ACETAMINOPHEN 1,000 MG/100 ML 1,000 MG/100 ML BAG IV PRN (21:29)
[2024-02-01 03:40] LABS: HCT - HEMATOCRIT 29.7 % (37.0-47.0); HGB - HEMOGLOBIN 9.4 g/dL (12.0-16.0); MEAN CORPUSCULAR HEMOGLOBIN 32.6 pg (27.0-31.0); MEAN CORPUSCULAR HGB CONC 31.6 g/dL (32.0-36.0); MEAN CORPUSCULAR VOLUME 103.1 fL (81.0-99.0); MEAN PLATELET VOLUME 11.6 fL (7.9-10.8); RED BLOOD COUNT 2.88 10^6/uL (4.20-5.40); RED CELL DISTRIBUTION WIDTH 15.9 % (12.0-15.0); WHITE BLOOD COUNT 12.3 x10^3/uL (4.8-10.8)
[2024-02-01 03:51] LABS: CALCIUM 8.2 mg/dL (8.5-10.3); CREATININE 0.8 mg/dL (0.6-1.3)
[2024-02-01 07:55] LABS: BILIRUBIN,URINE NEGATIVE (NEGATIVE); GLUCOSE, URINE (UA) NEGATIVE (NEGATIVE); KETONES,URINE (UA) TRACE mg/dL (NEGATIVE); LEUKOCYTE ESTERASE, URINE NEGATIVE (NEGATIVE); NITRITE,URINE NEGATIVE (NEGATIVE); OCCULT BLOOD,URINE NEGATIVE (NEGATIVE); PROTEIN,URINE NEGATIVE (NEGATIVE); UROBILINOGEN,URINE 0.2 (NORMAL) E.U./dL (NORMAL)
[2024-02-01 08:06] LABS: BACTERIA,URINE Rare /HPF (None Seen); CLARITY,URINE CLEAR (CLEAR); RBC,URINE None Seen /HPF (0-5); SQUAMOUS EPITHELIAL CELL,UR NONE SEEN (<= Few); WBC,URINE 0-3 /HPF (0-5)
[2024-02-01] MEDS ORDERED: cefTRIAXone 2 GM VIAL IVP SCH (09:00)
--- NOTE | 2024-02-01 09:21 | PROVIDER PROGRESS NOTE ---
Subjective Subjective Subjective: Patient is altered like yesterday. She does withdraw to voice, but is not opening her eyes, and is not interactive. Overnight, per night nurse, she was speaking, although it was not meaningful. She also had continued high fevers overnight. Patient's was at bedside this morning, so they are able to have a conversation with him. It appears his number in the system is correct, but he was not receiving any calls yesterday. Extensive discussion with him regarding patient's care. He mentions that her mentation has been off for the last week, she has been increasing confused and her speech has been more and more garbled. He does not recall any fevers or chills at home. We discussed the possibility of doing a lumbar puncture this morning prior to initiating antibiotics. He was agreeable and provided consent. Chuck, the NATIONAL GUARD MEMBER, also spoke with the and myself. The lumbar puncture was completed, and CSF studies were ordered. Ariana the pharmacist was spoken with, due to her penicillin allergy, we will broaden her antibiotics to vancomycin and meropenem. Will also add acyclovir at this time for possible viral encephalitis or HSV encephalitis. HSV studies are also ordered. Will continue de-escalate as possible. The above was also explained to the patient's , and he is agreeable to this management. Current Medications Current Medications Current Medications: Current Medications Generic Name Dose Route Start Last Admin Trade Name Freq PRN Reason Stop Dose Admin Atorvastatin Calcium 40 mg 01/31/24 21:00 01/31/24 21:28 Atorvastatin 40 Mg Tablet PO Not Given QPM MEHUL Cefepime HCl 2 gm 02/01/24 09:00 Cefepime 2 Gm Vial IVP BID MEHUL Enoxaparin Sodium 40 mg 02/01/24 09:00 Enoxaparin 40 Mg/0.4 Ml Syringe SUBQ DAILY MEHUL Acetaminophen 1,000 mg in 100 mls @ 400 mls/hr 01/31/24 20:50 02/01/24 03:43 Acetaminophen IV 400 mls/hr Q6HR PRN Administration Pain or Fever > 38C (100.4F) Lactated Ringer's 1,000 mls @ 999 mls/hr 02/01/24 08:09 Lr IV 02/01/24 09:09 ONCE ONE Lactated Ringer's 1,000 mls @ 75 mls/hr 02/01/24 09:00 Lr IV .[id number] MEHUL Vancomycin HCl 1 gm/ 500 mls @ 250 mls/hr 02/01/24 09:00 Vancomycin HCl 500 mg/ Sodium IV 02/01/24 10:59 Chloride ONCE ONE Thiamine HCl 500 mg 01/31/24 22:00 01/31/24 21:29 Thiamine 100 Mg/1 Ml 2 Ml Mdv IVP 02/02/24 14:01 500 mg TID MEHUL Administration Vancomycin HCl 1 each 02/01/24 08:13 Vancomycin: Pharmacy To Dose MC ONCE PRN PER PHARMACY Objective Vital Signs/Intake & Output Reviewed Vital Signs: Yes Vital Signs: Vital Signs x48h Temp Pulse Resp BP Pulse Ox 02/01/24 07:57 101.7 F H 79 18 126/63 94 02/01/24 06:02 99.0 F 89 22 152/69 H 94 02/01/24 05:20 99.7 F 02/01/24 03:44 101.7 F H 02/01/24 02:11 100.8 F H 81 18 140/61 H 96 Intake & Output: Intake & Output 01/30/24 01/31/24 02/01/24 02/02/24 05:59 05:59 05:59 05:59 Intake Total 655 / 655 Output Total 850 / 850 240 / 240 Balance -195 / -195 -240 / -240 Weight (kg) 55 kg Lab Results 02/01/24 03:21 02/01/24 03:21 Other Labs: Lab Results x24hrs 02/01/24 01/31/24 01/31/24 Range/Units 03:21 10:29 10:26 WBC 12.3 H 14.4 H (4.8-10.8) x10^3/uL RBC 2.88 L 3.10 L (4.20-5.40) 10^6/uL Hgb 9.4 L 10.3 L (12.0-16.0) g/dL Hct 29.7 L 33.2 L (37.0-47.0) % MCV 103.1 H 107.1 H (81.0-99.0) fL MCH 32.6 H 33.2 H (27.0-31.0) pg MCHC 31.6 L 31.0 L (32.0-36.0) g/dL RDW 15.9 H 15.4 H (12.0-15.0) % Plt Count 150 99 L (130-450) 10^3/uL MPV 11.6 H 12.1 H (7.9-10.8) fL Neut # (Auto) 9.9 H (1.5-6.6) 10^3/uL Lymph # (Auto) 1.9 (1.5-3.5) 10^3/uL [place] # (Auto) 2.5 H (0.0-1.0) 10^3/uL Eos # (Auto) 0.0 (0.0-0.7) 10^3/uL Baso # (Auto) 0.1 (0.0-0.1) 10^3/uL Absolute Nucleated RBC 0.00 x10^3/uL Nucleated RBC % 0.0 /100WBC Manual Slide Review Indicated RBC Morph Micro Appear 2+ ANISOCYTOSIS (NORMAL) PT 12.8 H (9.9-12.6) secs INR 1.2 (0.8-1.2) APTT 24.1 L (24.9-33.3) secs Sodium 138 139 (135-145) mmol/L Potassium 4.0 3.9 (3.5-4.5) mmol/L Chloride 105 106 (101-111) mmol/L Carbon Dioxide 25 25 (21-32) mmol/L Anion Gap 8.0 8.0 (6-13) BUN 20 23 H (6-20) mg/dL Creatinine 0.8 0.6 (0.6-1.3) mg/dL Estimated GFR (MDRD) 68 L 95 (>89) Glucose 86 97 (74-104) mg/dL Estimat Average Glucose 80 (70-100) mg/dL Hemoglobin A1c % 4.4 (4.27-6.07) % Calcium 8.2 L 8.9 (8.5-10.3) mg/dL Total Bilirubin 0.9 (0.2-1.0) mg/dL AST 16 (10-42) IU/L ALT 10 (10-60) IU/L Alkaline Phosphatase 53 (42-121) IU/L Troponin I High Sens 7.4 (2.3-14.8) ng/L Total Protein 6.1 L (6.4-8.9) g/dL Albumin 3.4 (3.2-5.5) g/dL Globulin 2.7 (2.1-4.2) g/dL Albumin/Globulin Ratio 1.3 (1.0-2.2) Triglycerides 314 mg/dL Cholesterol 92 ( - 200) mg/dL LDL Cholesterol, Calc Not Reportable VLDL Cholesterol 63 mg/dL HDL Cholesterol 3 L (60 - ) mg/dL LDL/HDL Ratio Not Reportable Cholesterol/HDL Ratio 30.7 (<4.4) TSH 4.72 (0.34-5.60) uIU/mL Urine Color Urine Clarity (CLEAR) Urine pH (5.0-7.5) PH Ur Specific [place] (1.002-1.030) Urine Protein (NEGATIVE) mg/dL Urine Glucose (UA) (NEGATIVE) mg/dL Urine Ketones (NEGATIVE) mg/dL Urine Occult Blood (NEGATIVE) Urine Nitrite (NEGATIVE) Urine Bilirubin (NEGATIVE) Urine Urobilinogen (NORMAL) E.U./dL Ur Leukocyte Esterase (NEGATIVE) Urine RBC (0-5) /HPF Urine WBC (0-5) /HPF Ur Squamous Epith Cells (<= Few) Urine Bacteria (None Seen) /HPF Urine Culture Comments Ethyl Alcohol < 10.0 mg/dL 01/31/24 Range/Units 07:43 WBC (4.8-10.8) x10^3/uL RBC (4.20-5.40) 10^6/uL Hgb (12.0-16.0) g/dL Hct (37.0-47.0) % MCV (81.0-99.0) fL MCH (27.0-31.0) pg MCHC (32.0-36.0) g/dL RDW (12.0-15.0) % Plt Count (130-450) 10^3/uL MPV (7.9-10.8) fL Neut # (Auto) (1.5-6.6) 10^3/uL Lymph # (Auto) (1.5-3.5) 10^3/uL [place] # (Auto) (0.0-1.0) 10^3/uL Eos # (Auto) (0.0-0.7) 10^3/uL Baso # (Auto) (0.0-0.1) 10^3/uL Absolute Nucleated RBC x10^3/uL Nucleated RBC % /100WBC Manual Slide Review RBC Morph Micro Appear (NORMAL) PT (9.9-12.6) secs INR (0.8-1.2) APTT (24.9-33.3) secs Sodium (135-145) mmol/L Potassium (3.5-4.5) mmol/L Chloride (101-111) mmol/L Carbon Dioxide (21-32) mmol/L Anion Gap (6-13) BUN (6-20) mg/dL Creatinine (0.6-1.3) mg/dL Estimated GFR (MDRD) (>89) Glucose (74-104) mg/dL Estimat Average Glucose (70-100) mg/dL Hemoglobin A1c % (4.27-6.07) % Calcium (8.5-10.3) mg/dL Total Bilirubin (0.2-1.0) mg/dL AST (10-42) IU/L ALT (10-60) IU/L Alkaline Phosphatase (42-121) IU/L Troponin I High Sens (2.3-14.8) ng/L Total Protein (6.4-8.9) g/dL Albumin (3.2-5.5) g/dL Globulin (2.1-4.2) g/dL Albumin/Globulin Ratio (1.0-2.2) Triglycerides mg/dL Cholesterol ( - 200) mg/dL LDL Cholesterol, Calc VLDL Cholesterol mg/dL HDL Cholesterol (60 - ) mg/dL LDL/HDL Ratio Cholesterol/HDL Ratio (<4.4) TSH (0.34-5.60) uIU/mL Urine Color YELLOW Urine Clarity CLEAR (CLEAR) Urine pH 6.0 (5.0-7.5) PH Ur Specific [place] 1.025 (1.002-1.030) Urine Protein NEGATIVE (NEGATIVE) mg/dL Urine Glucose (UA) NEGATIVE (NEGATIVE) mg/dL Urine Ketones TRACE (NEGATIVE) mg/dL Urine Occult Blood NEGATIVE (NEGATIVE) Urine Nitrite NEGATIVE (NEGATIVE) Urine Bilirubin NEGATIVE (NEGATIVE) Urine Urobilinogen 0.2 (NORMAL) (NORMAL) E.U./dL Ur Leukocyte Esterase NEGATIVE (NEGATIVE) Urine RBC None Seen (0-5) /HPF Urine WBC 0-3 (0-5) /HPF Ur Squamous Epith Cells NONE SEEN (<= Few) Urine Bacteria Rare (None Seen) /HPF Urine Culture Comments NOT INDICATED Ethyl Alcohol mg/dL Sepsis Event Note (H) Evaluation Current Stage of Sepsis: Ruled out Assessment/Plan Problem List (1) Acute metabolic encephalopathy: Impression: MRI ordered for further stroke workup. Patient is also now spiking fevers, and remains altered. Concern for meningitis versus encephalitis. Patient's is now at bedside, and we were able to consent him for a lumbar puncture. NATIONAL GUARD MEMBER, [place] Husain, was spoken with, and lumbar puncture was performed at bedside. CSF studies were step for further workupCSF glucose, protein, cell count, cultures, HSV 1 and 2 PCR. At this time, we will treat broadly with vancomycin, meropenem as patient has a penicillin allergy, as well as acyclovir. 8.25 mg every six hours Dexamethasone was started as well. Patient does also have a extensive history of alcohol use; we will treat her concurrently for Wernicke's. She will be continued on thiamine injections 500 mg 3 times a day for 2 days, followed by 250 mg of thiamine daily. (2) Combined receptive and expressive aphasia: Impression: Patient presented from home after family found her confused, with garbled speech. Currently, she is having both expressive and receptive aphasia. Last known normal was yesterday evening around [address] head, CTA negative for any acute infarcts. Will continue to workup stroke with MRI of the brain. Allow permissive hypertension with blood pressure of 220/120 today. Will restart antihypertensive regimen tomorrow morning. Echo ordered, pending. Patient will be placed on cardiac telemetry. Repeat EKG ordered, pending. Patient received aspirin. Will continue 81 mg daily. Continue statin. Lipid panel ordered, pending. Physical therapy, Occupational Therapy, speech therapy ordered, pending. (3) Atrial fibrillation: Impression: Patient is telemetry overnight had some questionable episodes of atrial fibrillation versus premature atrial contractions. Repeat EKG ordered, did show PACs. Will continue patient on telemetry at this time. If this is the case, and patient does have a CVA, there is a chance it may be cardioembolic. [id number] of 4, anticoagulation would be recommended. However HASBLED score is 4, and patient is at high risk of falling due to her chronic alcohol use, and is at risk for major bleeding. Will have discussion with patient's and patient if her mental status improves about initiating anticoagulation. Qualifiers: Atrial fibrillation type: unspecified Qualified Code(s): I48.91 - Unspecified atrial fibrillation (4) Leukocytosis: Impression: Concern for HOSPITAL WARD CLERK infection as outlined above. Chest x-ray with patchy bibasilar atelectasis. Patient remains on room air. No obvious skin ulcerations that appear infected. She does have a blanchable vasculitic rash on her bilateral lower extremities which is apparently chronic and likely due to underlying PVD. UA negative for UTI. Qualifiers: Leukocytosis type: unspecified Qualified Code(s): D72.829 - Elevated white blood cell count, unspecified (5) Anemia, B12 deficiency: Impression: Patient has a known history of vitamin B12 per family practice notes in the outpatient setting. She is being actively treated for this. Continue to trend hemoglobin, transfuse if less than 7. Qualifiers: Vitamin B12 deficiency anemia type: unspecified B12 deficiency Q ualified Code(s): D51.9 - Vitamin B12 deficiency anemia, unspecified (6) Chronic alcohol use: Impression: Patient has a history of chronic alcohol use per family med documentation. She did see her family Dr. Kenia Avendaño on 01/20. Here it was stated that she drinks 4 bottles of wine per week. She was actively working on reducing her alcohol consumption. CIWA protocol in place. Will try to abstain from using Ativan as to not worsen her altered mentation. Continue thiamine supplementation as above. Will also start a vitamin. (7) Hypertension: Impression: Patient is on a antihypertensive according to outside records. Allow permissive hypertension at this time to 220/120, will continue to implement regimen when able. Qualifiers: Hypertension type: primary hypertension Qualified Code(s): I10 - Essential (primary) hypertension (8) Hyperlipidemia: Impression: Patient was on low intensity statin as an outpatient, high intensity statin initiated as stated above. Qualifiers: Hyperlipidemia type: unspecified Qualified Code(s): E78.5 - Hyperlipidemia, unspecified (9) Peripheral vascular disease: Impression: Patient with blanchable vasculitic rash on bilateral lower extremities. Family medicine notes reviewed from outpatient and it appears to be a chronic problem. Duplex ultrasound and Dopplers were ordered as an outpatient. Continue to follow up outpatient.
--- NOTE | 2024-02-01 11:45 | CONSULTATION NOTE ---
Consultation Report: Called for assistance with an lumbar puncture. Consent was obtained from the patients ; questions were answered. Assisted by hospitalist and CAR RETARDER OPERATOR. LP was done in a sitting position; no opening pressures requested; sterile chlorhexidine prep and drape, sterile technique, 1% lido local, L3-4 interspace, 20 g quincke needle, 2 passes, -hem, -paresthesia, +csf; 4 tubes of 1.5 ml each were collected; they were labeled, signed, timed and dated, with notation of order of collection, specimens taken to lab by the hospitalist. pt returned to bed in no apparent distress. thank you for this consultation. [facility] Social History Social History (Updated 01/21/24 @ 08:31 by Lanre Ferreira MA) Smoking Status: Unknown if ever smoked Do you vape?: No Living arrangement: At home Marital Status: Living Condition: With spouse/s.o. Relationship: Child Home Mobility Equipment: Wheeled walker ETOH Use: Wine Frequency: Daily Number of Amount/day: 2 Substance Use: denies use Are you sexually active?: No Retired: Yes Service: No Are you following a diet prescribed by a doctor: No Are you following a special diet: No POLST Patient has POLST: No Conclusion/Plan Problem List (1) Acute metabolic encephalopathy: Plan: Likely due to possible CVA or TIA as noted above. Patient does also have a extensive history of alcohol use; we will treat her concurrently for Wernicke's. She will be continued on thiamine injections 500 mg 3 times a day for 2 days, followed by 250 mg of thiamine daily. Patient does have a leukocytosis, no respiratory symptoms. No rashes that appear infected. UA is pending. (2) Combined receptive and expressive aphasia: Plan: Patient presented from home after family found her confused, with garbled speech. Currently, she is having both expressive and receptive aphasia. Last known normal was yesterday evening around [address] head, CTA negative for any acute infarcts. Will continue to workup stroke with MRI of the brain. Allow permissive hypertension with blood pressure of 220/120 today. Will restart antihypertensive regimen tomorrow morning. Echo ordered, pending. Patient will be placed on cardiac telemetry. Repeat EKG ordered, pending. Patient received aspirin. Will continue 81 mg daily. Continue statin. Lipid panel ordered, pending. Physical therapy, Occupational Therapy, speech therapy ordered, pending. (3) Atrial fibrillation: Plan: Initial EKG does show new onset atrial fibrillation. Repeat EKG pending. Patient remains on telemetry. If this is the case, and patient does have a CVA, there is a chance it may be cardioembolic. [id number] of 4, anticoagulation would be recommended. However has blood score is 4, and patient is at high risk of falling due to her chronic alcohol use, and is at risk for major bleeding. Will have discussion with patient's and patient if her mental status improves about initiating anticoagulation. Qualifiers: Atrial fibrillation type: unspecified Qualified Code(s): I48.91 - Unspecified atrial fibrillation (4) Leukocytosis: Plan: Chest x-ray with patchy bibasilar atelectasis. No respiratory symptoms at this time, patient is on room air. No obvious skin ulcerations that appear infected. She does have a blanchable vasculitic rash on her bilateral lower extremities which is apparently chronic and likely due to underlying PVD. UA pending. Will treat for UTI if positive. Qualifiers: Leukocytosis type: unspecified Qualified Code(s): D72.829 - Elevated white blood cell count, unspecified (5) Anemia, B12 deficiency: Plan: Patient has a known history of vitamin B12 per family practice notes in the outpatient setting. She is being actively treated for this. Continue to trend hemoglobin, transfuse if less than 7. Qualifiers: Vitamin B12 deficiency anemia type: unspecified B12 deficiency Q ualified Code(s): D51.9 - Vitamin B12 deficiency anemia, unspecified (6) Chronic alcohol use: Plan: Patient has a history of chronic alcohol use per family med documentation. She did see her family Dr. Kenia Avendaño on 01/20. Here it was stated that she drinks 4 bottles of wine per week. She was actively working on reducing her alcohol consumption. CIWA protocol in place. Will try to abstain from using Ativan as to not worsen her altered mentation. Continue thiamine supplementation as above. Will also start a vitamin. (7) Hypertension: Plan: Patient is on a antihypertensive for outside records. Allow permissive hypertension at this time to 220/120, will continue to implement regimen when able. Qualifiers: Hypertension type: primary hypertension Qualified Code(s): I10 - Essential (primary) hypertension (8) Hyperlipidemia: Plan: Patient was on low intensity statin as an outpatient, high intensity statin initiated as stated above. Qualifiers: Hyperlipidemia type: unspecified Qualified Code(s): E78.5 - Hyperlipidemia, unspecified (9) Peripheral vascular disease: Plan: Patient with blanchable vasculitic rash on bilateral lower extremities. Family medicine notes reviewed from outpatient and it appears to be a chronic problem Duplex ultrasound and Dopplers were ordered as an outpatient. Continue to follow up outpatient. Lab Results Lab results reviewed: Yes 02/01/24 03:21 02/01/24 03:21 Meds/Allgy Home Medications Ambulatory Orders Medication Instructions Recorded Confirmed hydrochlorothiazide 25 mg tablet 25 mg PO QAM 01/21/24 01/31/24 simvastatin 20 mg tablet 20 mg PO QDAY 01/21/24 01/31/24 Allergies Allergies Allergy/AdvReac Type Severity Reaction Status Date / Time Penicillins Allergy Unknown Unknown Verified 01/31/24 10:32 Anesthesia Exam (Expanded) Exam Mallampati classification: II
[2024-02-01 12:12] LABS: CLARITY,CSF CLEAR (CLEAR); COLOR,CSF COLORLESS (COLORLESS); CSF - GLUCOSE 40 mg/dL (45-70); CSF TUBE # CSF TUBE# 3; CSF XANTHOCHROMIA ABSENT (ABSENT); RED BLOOD CELL,CSF 175 /mm^3 (0-1); TOTAL PROTEIN,CSF 92 mg/dL (15-60); WHITE BLOOD CELL,CSF 10 /mm^3 (0-5)
[2024-02-01] MEDS: CEFEPIME 2 GM VIAL IVP SCH (12:13)
[2024-02-01] MEDS: VANCOMYCIN INJ 1 GM, VANCOMYCIN INJ 500 MG in SODIUM CHLORIDE 0.9% 500 ML IV ONE (12:23)
[2024-02-01 12:43] LABS: LYMPHOCYTES,CSF 70 % (40-80); MONOCYTES,CSF 14 % (15-45); NEUTROPHILS,CSF 9 % (0-6); OTHER CELLS,CSF 2 %
--- NOTE | 2024-02-01 12:44 | PHARMACY PROGRESS NOTE ---
Best Possible Medication History Admit Date and Time: 01/31/24 [id number] Processed by: Pharmacy Medications reviewed in ED?: No Medication History completed: Yes Patient Interview: Pt unable to participate Secondary Source(s): Spouse/Significant other and Insurance records [facility] Statement: As the person ultimately responsible for medication therapy, providers are able to order a medication from an existing home medication list in [facility] via the "Reconcile Routine" prior to Confirmation of that medication by community support associate. Such practice is discouraged except when the physician, in their clinical judgment, deems that a medical need exists for a medication without regard to previous use.
--- NOTE | 2024-02-01 12:48 | PHARMACY PROGRESS NOTE ---
Vancomycin Therapy Monitoring Vancomycin Therapy Goals Treatment Indication: EMPIRIC, POSSIBLE MENINGITIS Vancomycin Target Range: Vancomycin AUC Target Range 400-600 mcg*h/ml Plan: Vancomycin Loading Dose (GM, if applicable): 1500 MG X1 . @ 1223 New Regimen (Enter new dose and interval): 750MG Q12H STARTING 01/31 @ 2300 WITH ANTICIPATED AUC OF 579
[2024-02-01] MEDS: MEROPENEM 2 GM in SODIUM CHLORIDE 0.9% MINIBAG 100 ML IV SCH (15:41)
[2024-02-01] MEDS: ENOXAPARIN 40 MG/0.4 ML SYRINGE SUBQ SCH (15:44)
[2024-02-01] MEDS: DEXAMETHASONE 10 MG/ML VIAL IVP SCH (15:45)
[2024-02-01] MEDS: ACYCLOVIR IV SCH (16:23)
[2024-02-01] MEDS: SODIUM CHLORIDE 0.9% IV SCH (16:23)
[2024-02-01] MEDS: LORazepam 2 MG/ML VIAL IVP PRN (17:03)
[2024-02-01 17:13] LABS: B. PARAPERTUSSIS- RESP PCR PAN NOT DETECTED; B. PERTUSSIS- RESP PCR PANEL NOT DETECTED; C. PNEUMONIAE- RESP PCR PANEL NOT DETECTED; CORONAVIRUS 229E-RESP PCR NOT DETECTED; CORONAVIRUS HKU1-RESP PCR NOT DETECTED; CORONAVIRUS NL63-RESP PCR NOT DETECTED; CORONAVIRUS OC43-RESP PCR NOT DETECTED; HUMAN METAPNEUMOVIRUS NOT DETECTED; INFLUENZA A- RESP PCR PANEL NOT DETECTED; INFLUENZA B - RESP PCR PANEL NOT DETECTED; M. PNEUMONIAE- RESP PCR PANEL NOT DETECTED; PARAINFLUENZA VIRUS 1 NOT DETECTED; PARAINFLUENZA VIRUS 2 NOT DETECTED; PARAINFLUENZA VIRUS 3 NOT DETECTED; PARAINFLUENZA VIRUS 4 NOT DETECTED; RHINOVIRUS/ENTEROVIRUS NOT DETECTED; RSV- RESP PCR PANEL NOT DETECTED; SARS-CoV-2 -RESP PCR PANEL NOT DETECTED
[2024-02-01] MEDS: LACTATED RINGERS 1,000 ML IV ONE (18:24)
[2024-02-01] MEDS: LACTATED RINGERS 1,000 ML IV SCH (19:55)
[2024-02-01] MEDS: VANCOMYCIN INJ 0.75 GM in SODIUM CHLORIDE 0.9% 250 ML IV SCH (22:33)
[2024-02-02 05:40] LABS: HCT - HEMATOCRIT 25.1 % (37.0-47.0); HGB - HEMOGLOBIN 7.9 g/dL (12.0-16.0); MEAN CORPUSCULAR HEMOGLOBIN 33.5 pg (27.0-31.0); MEAN CORPUSCULAR HGB CONC 31.5 g/dL (32.0-36.0); MEAN CORPUSCULAR VOLUME 106.4 fL (81.0-99.0); MEAN PLATELET VOLUME 11.3 fL (7.9-10.8); RED BLOOD COUNT 2.36 10^6/uL (4.20-5.40); RED CELL DISTRIBUTION WIDTH 15.9 % (12.0-15.0)
[2024-02-02 05:57] LABS: ALBUMIN 2.5 g/dL (3.2-5.5); ALBUMIN/GLOBULIN RATIO 1.3 (1.0-2.2); CALCIUM 7.7 mg/dL (8.5-10.3); CREATININE 0.7 mg/dL (0.6-1.3); MAGNESIUM 1.5 mg/dL (1.7-2.3); POTASSIUM 3.6 mmol/L (3.5-4.5); TOTAL PROTEIN 4.5 g/dL (6.4-8.9)
[2024-02-02] MEDS: ENOXAPARIN 40 MG/0.4 ML SYRINGE SUBQ SCH (10:45)
[2024-02-02] MEDS: THIAMINE 100 MG/1 ML 2 ML MDV IVP SCH (10:45)
--- NOTE | 2024-02-02 11:51 | MRI Report ---
PROCEDURE: MRI Brain WO INDICATIONS: Please evaluate for cva TECHNIQUE: Noncontrast axial T1 spin echo, axial T2 fast spin echo, sagittal and axial FLAIR, coronal T2 fast sp in echo, axial gradient echo, axial diffusion and ADC through the brain. COMPARISON: The patient is made with CT examinations, 01/31/2024. FINDINGS: Image quality: Motion artifact is noted. CSF Spaces: Basal cisterns are patent. No extra-axial fluid collections. Ventricles are normal in size and shape. Brain: Patchy areas of abnormal diffusion-weighted signal can be seen with involving the deep white m atter of both cerebral hemispheres, right worse than left. Associated dark signal can be seen on ADC maps. There is developing T2-weighted signal seen at these sites. No intracranial masses or hemorrhage. Whitman/white matter interface is normal. Brainstem appears norm al. No chronic ischemic insults. Normal intravascular flow voids are present. Age-appropriate bra in parenchymal volume loss and chronic small vessel ischemic change can be seen. Symmetric calcifica tion of the basal ganglia can be seen, which is considered to be within normal limits for age. Skull and face: Calvarium has normal marrow signal. Orbits appear normal. Sinuses: Sinuses and mastoids are clear. IMPRESSION: Scattered areas of subacute infarction can be seen involving the deep white matter of both cerebral h emispheres, right worse than left. Reviewed by: Artemio Hernandez MD on 02/02/2024 10:50 AM JACQUELINE Approved by: Artemio Hernandez MD on 02/02/2024 10:50 AM JACQUELINE Station ID: [id number]
[2024-02-02] MEDS: CYANOCOBALAMIN 1,000 MCG/ML VIAL IM ONE (16:36)
--- NOTE | 2024-02-02 17:34 | PROVIDER PROGRESS NOTE ---
Subjective Prog Note Date Prog Note Date: 02/02/24 Prog Note Time: 17:30 Subjective Subjective: Pt more awake and communicative today. at bedside. Pt states name, follows simple commands. Denies neck and head pain. No CP or SOB. no Abd pain. Current Medications Current Medications Current Medications: Current Medications Generic Name Dose Route Start Last Admin Trade Name Freq PRN Reason Stop Dose Admin Atorvastatin Calcium 40 mg 01/31/24 21:00 02/01/24 19:56 Atorvastatin 40 Mg Tablet PO Not Given QPM MEHUL Cyanocobalamin 1,000 mcg 02/03/24 10:00 Cyanocobalamin 1,000 Mcg/Ml Vial IM 02/03/24 10:01 ONCE ONE Cyanocobalamin 1,000 mcg 02/04/24 10:00 Cyanocobalamin 1,000 Mcg/Ml Vial IM 02/04/24 10:01 ONCE ONE Enoxaparin Sodium 40 mg 02/02/24 09:00 02/02/24 10:45 Enoxaparin 40 Mg/0.4 Ml Syringe SUBQ 40 mg DAILY MEHUL Administration Acetaminophen 1,000 mg in 100 mls @ 400 mls/hr 01/31/24 20:50 02/01/24 15:40 Acetaminophen IV Infused Q6HR PRN Infusion Pain or Fever > 38C (100.4F) Lactated Ringer's 1,000 mls @ 75 mls/hr 02/01/24 09:00 02/02/24 13:57 Lr IV 75 mls/hr .[id number] MEHUL Administration Meropenem 2 gm/ Sodium 100 mls @ 200 mls/hr 02/01/24 12:00 02/02/24 14:25 Chloride IV Infused Q12H MEHUL Infusion Acyclovir 550 mg/ Sodium 261 mls @ 250 mls/hr 02/01/24 12:30 02/02/24 13:48 Chloride IV Not Given Q12H MEHUL Thiamine HCl 250 mg/ Sodium 52.5 mls @ 100 mls/hr 02/03/24 09:00 Chloride IV 02/07/24 08:59 DAILY MEHUL Objective Vital Signs/Intake & Output Vital Signs: Vital Signs x48h Temp Pulse Resp BP Pulse Ox 02/02/24 15:55 36.3 C L 70 18 118/53 L 96 02/02/24 12:46 36.5 C 76 20 123/66 96 Intake & Output: Intake & Output 01/31/24 02/01/24 02/02/24 02/03/24 05:59 05:59 05:59 05:59 Intake Total 655 / 655 2408 / 2408 1514 / 1514 Output Total 850 / 850 2315 / 2315 650 / 650 Balance -195 / -195 93 / 93 864 / 864 Weight (kg) 55 kg Objective Comments/Other: older woman lying in bed, NAD, sclera anicteric, MMM, no thyromegaly LCTAB, nonlabored RRR, S1S2, no edema abd soft, NT, ND, BS+ sleepy, easily arousable to voice, oriented to person, strength 5/5 UE and LE bilat, normal tone, no tremor, sensation intact, skin: morbiliform/leukocytoclastic erythematous rash diffusely over lower legs and feet, PT pules 2+, no edema, no ulcers or skin breakdown palma draining yellow urine Lab Results 02/02/24 17:02 02/02/24 05:15 Other Labs: Lab Results x24hrs 02/02/24 02/02/24 Range/Units 17:02 05:15 WBC 9.0 (4.8-10.8) x10^3/uL RBC 2.36 L (4.20-5.40) 10^6/uL Hgb 9.0 L 7.9 L (12.0-16.0) g/dL Hct 29.0 L 25.1 L (37.0-47.0) % MCV 106.4 H (81.0-99.0) fL MCH 33.5 H (27.0-31.0) pg MCHC 31.5 L (32.0-36.0) g/dL RDW 15.9 H (12.0-15.0) % Plt Count 127 L (130-450) 10^3/uL MPV 11.3 H (7.9-10.8) fL Sodium 138 (135-145) mmol/L Potassium 3.6 (3.5-4.5) mmol/L Chloride 109 (101-111) mmol/L Carbon Dioxide 26 (21-32) mmol/L Anion Gap 3.0 L (6-13) BUN 17 (6-20) mg/dL Creatinine 0.7 (0.6-1.3) mg/dL Estimated GFR (MDRD) 80 L (>89) Glucose 81 (74-104) mg/dL Calcium 7.7 L (8.5-10.3) mg/dL Magnesium 1.5 L (1.7-2.3) mg/dL Total Bilirubin 1.0 (0.2-1.0) mg/dL AST 17 (10-42) IU/L ALT 9 L (10-60) IU/L Alkaline Phosphatase 32 L (42-121) IU/L Total Protein 4.5 L (6.4-8.9) g/dL Albumin 2.5 L (3.2-5.5) g/dL Globulin 2.0 L (2.1-4.2) g/dL Albumin/Globulin Ratio 1.3 (1.0-2.2) Other Results/Comments Other Results/Comments: CSF cx: NGTD blood cx NGTD UA neg for infection B12: 127 Sepsis Event Note (H) Evaluation Current Stage of Sepsis: Ruled out Assessment/Plan Problem List (1) Acute metabolic encephalopathy: (2) Anemia, B12 deficiency: Qualifiers: Vitamin B12 deficiency anemia type: unspecified B12 deficiency Q ualified Code(s): D51.9 - Vitamin B12 deficiency anemia, unspecified (3) Chronic alcohol use: (4) Atrial fibrillation: Qualifiers: Atrial fibrillation type: unspecified Qualified Code(s): I48.91 - Unspecified atrial fibrillation (5) Hypertension: Qualifiers: Hypertension type: primary hypertension Qualified Code(s): I10 - Essential (primary) hypertension (6) Peripheral vascular disease: Impression: 84 yo F with pmhx of etoh use disorder, PVD, afib, ? vasculitis rash on legs admitted with AMS, expressive and receptive aphasia, fever. CT head and CTA negative. LP obtained and pt started on broad spectrum abx and acyclovir empirically in case of EXHIBITIONS AND COLLECTIONS MANAGER infection. 1. toxic/metabolic encephalopathy, aphasia, r/o EXHIBITIONS AND COLLECTIONS MANAGER infection: Improved markedly today. Afebrile since yesterday, wbc trending down. no meningeal signs on exam and with wbc count in CSF 10, bacterial meningitis is very unlikely. Viral encephalitis remains in ddx. Also potential causes for AMS include B12 def, wernicke/korsakoff, CVA. - cont acyclovir - f/u HSV PCR - d/c vanc. Cont meropenem until blood cx neg at 48 hrs. - f/u Brain MRI - treat other reversible causes as listed below 2. chronic B12 deficiency, acute on chronic macrocytic anemia: currently being managed in outpt clinic. Acute drop in H/H overnight. no gross bleeding. - give B12 IM daily x 3 days while here - follow H/H this evening, transfuse if < 7 - F/u Fe studies 3. etoh use d/o, r/o Wernicke's: - s/p thiamine 500 mg iv TID x 1-2 days. Cont 250 iv daily x another 5 days - certified lactation counselor on cessation 4. afib: CHADSVASc= 4, HAS bled= 4, fall risk. Tele with NSR, ? some episodes of afib vs sinus tach vs PACs. - monitor on tele - continue anticoagulation discussion prior to discharge dvt ppx: lovenox Dispo plan and GOC: Came from home with . Pending improvement in AMS.
[2024-02-02] MEDS: ENOXAPARIN 60 MG/0.6 ML SYRINGE SUBQ SCH (21:23)
[2024-02-02] MEDS: MAGNESIUM OXIDE 400 MG TABLET PO SCH (21:23)
[2024-02-03 05:58] LABS: HGB - HEMOGLOBIN 8.6 g/dL (12.0-16.0); MEAN CORPUSCULAR HEMOGLOBIN 33.6 pg (27.0-31.0); MEAN CORPUSCULAR HGB CONC 31.9 g/dL (32.0-36.0); MEAN CORPUSCULAR VOLUME 105.5 fL (81.0-99.0); MEAN PLATELET VOLUME 10.9 fL (7.9-10.8); RED BLOOD COUNT 2.56 10^6/uL (4.20-5.40); RED CELL DISTRIBUTION WIDTH 15.6 % (12.0-15.0); WHITE BLOOD COUNT 9.6 x10^3/uL (4.8-10.8)
[2024-02-03 06:13] LABS: ALBUMIN 2.5 g/dL (3.2-5.5); ALBUMIN/GLOBULIN RATIO 1.3 (1.0-2.2); BILIRUBIN,TOTAL 0.6 mg/dL (0.2-1.0); CALCIUM 7.6 mg/dL (8.5-10.3); CREATININE 0.6 mg/dL (0.6-1.3); MAGNESIUM 1.6 mg/dL (1.7-2.3); PHOSPHORUS 2.9 mg/dL (2.5-5.0); POTASSIUM 3.5 mmol/L (3.5-4.5); TOTAL PROTEIN 4.4 g/dL (6.4-8.9)
[2024-02-03 06:31] LABS: FERRITIN 1106.6 ng/mL (11.0-306.8)
[2024-02-03] MEDS: SENNA 8.6 MG TABLET PO SCH (08:23)
[2024-02-03] MEDS: DOCUSATE SODIUM 250 MG CAPSULE PO SCH (08:23)
[2024-02-03] MEDS: polyethylene glycoL 3350 17 GM PACKET PO SCH (08:24)
[2024-02-03] MEDS: THIAMINE INJ 250 MG in SODIUM CHLORIDE 0.9% 50 ML IV SCH (08:58)
[2024-02-03] MEDS: CYANOCOBALAMIN 1,000 MCG/ML VIAL IM ONE (10:26)
[2024-02-03] MEDS ORDERED: ACETAMINOPHEN 500 MG TABLET PO PRN (11:39)
--- NOTE | 2024-02-03 13:46 | ANESTHESIA PROCEDURE NOTE ---
Anesth Central Line Template Central Line Central Line Preparation: Consent Obtained
--- NOTE | 2024-02-03 13:50 | ANESTHESIA PROCEDURE NOTE ---
Anesth Central Line Template Central Line Central Line Preparation: Consent Obtained (from ), Time out completed, Ultrasound used and Sterile prep and drape Central line location: Right Brachial Central line type: PICC Double Lumen Central line catheter tip site resides: Superior vena cava (SVC) Central line aftercare: Secured, Placement confirmed, No complications, Bundle checklist complete and Pt tolerated well Other Info/Details: After informed consent was obtained and timeout complete, right arm was prepped with chlorahexadine x2 and full sterile drape, gown, gloves and mask utilized. Skin was localized with 3ml of 1% lidocaine. The right brachial vein was identified under ultrasound and accessed with 20G needle. Wire advanced with ease. Peel-away sheath inserted and a #5 fr dual lumen PICC was trimmed to 41cm and inserted. Tip tracker showed tip directed towards heart, but p-wave changes were consistent with placement in the distal SVC with 1cm exposed. Peel away she ath removed. Both ports aspirate blood and flush with ease. Line was secured. OK to use PICC
--- NOTE | 2024-02-03 17:53 | PROVIDER PROGRESS NOTE ---
Subjective Prog Note Date Prog Note Date: 02/03/24 Prog Note Time: 17:46 Subjective Subjective: Pt's mental status improved today. Awake, communicative, attends to questions and given appropriate answers for the most part. Confused at times and with poor insight. Denies pain, SOB, n/v/diarrhea. PICC line placed for iv medication today and pt pulled it out later in the day. at bedside. Current Medications Current Medications Current Medications: Current Medications Generic Name Dose Route Start Last Admin Trade Name Freq PRN Reason Stop Dose Admin Acetaminophen 1,000 mg 02/03/24 11:39 Acetaminophen 500 Mg Tablet PO Q6H PRN Pain or Fever > 38C (100.4F) Atorvastatin Calcium 40 mg 01/31/24 21:00 02/02/24 21:22 Atorvastatin 40 Mg Tablet PO 40 mg QPM MEHUL Administration Cyanocobalamin 1,000 mcg 02/04/24 10:00 Cyanocobalamin 1,000 Mcg/Ml Vial IM 02/04/24 10:01 ONCE ONE Docusate Sodium 250 - 500 mg 02/03/24 09:00 02/03/24 08:23 Docusate Sodium 250 Mg Capsule PO 250 mg DAILY MEHUL Administration Enoxaparin Sodium 60 mg 02/02/24 21:00 02/03/24 08:24 Enoxaparin 60 Mg/0.6 Ml Syringe SUBQ 60 mg BID MEHUL Administration Acyclovir 550 mg/ Sodium 261 mls @ 250 mls/hr 02/01/24 12:30 02/03/24 14:54 Chloride IV Infused Q12H MEHUL Infusion Thiamine HCl 250 mg/ Sodium 52.5 mls @ 100 mls/hr 02/03/24 09:00 02/03/24 14:15 Chloride IV 02/07/24 08:59 Infused DAILY MEHUL Infusion Magnesium Oxide 400 mg 02/02/24 20:00 02/03/24 08:23 Magnesium Oxide 400 Mg Tablet PO 02/05/24 19:59 400 mg DAILYWM MEHUL Administration Polyethylene Glycol 17 gm 02/03/24 09:00 02/03/24 08:24 Polyethylene Glycol 3350 17 Gm Packet PO 17 gm DAILY MEHUL Administration Senna 8.6 - 17.2 mg 02/03/24 09:00 02/03/24 08:23 Senna 8.6 Mg Tablet PO 8.6 mg DAILY MEHUL Administration Objective Vital Signs/Intake & Output Reviewed Vital Signs: Yes Vital Signs: Vital Signs x48h Temp Pulse Resp BP Pulse Ox 02/03/24 15:34 36.2 C L 63 18 104/56 L 97 02/03/24 10:58 36.4 C L 78 18 126/69 95 Intake & Output: Intake & Output 02/01/24 02/02/24 02/03/24 02/04/24 05:59 05:59 05:59 05:59 Intake Total 655 / 655 2408 / 2408 2925 / 2925 1368.5 / 1368.5 Output Total 850 / 850 2315 / 2315 950 / 950 1200 / 1200 Balance -195 / -195 93 / 93 1974 / 1974 168.5 / 168.5 Weight (kg) 55 kg Objective Comments/Other: older woman lying in bed, NAD, sclera anicteric, MMM, LCTAB, nonlabored RRR, S1S2, no edema abd soft, NT, ND, BS+ alert, oriented to person, place, confused at times. strength 5/5 UE and LE bilat except 4/5 knee flexion and extension bilat, normal tone, no tremor, sensation intact, FNF intact, no pronator drift, normal speech sounds, PERRL skin: morbiliform/leukocytoclastic erythematous rash diffusely over lower legs and feet, PT pules 2+, no edema, no ulcers or skin breakdown palma draining yellow urine Lab Results 02/03/24 05:21 02/03/24 05:21 Other Labs: Lab Results x24hrs 02/03/24 Range/Units 05:21 WBC 9.6 (4.8-10.8) x10^3/uL RBC 2.56 L (4.20-5.40) 10^6/uL Hgb 8.6 L (12.0-16.0) g/dL Hct 27.0 L (37.0-47.0) % MCV 105.5 H (81.0-99.0) fL MCH 33.6 H (27.0-31.0) pg MCHC 31.9 L (32.0-36.0) g/dL RDW 15.6 H (12.0-15.0) % Plt Count 137 (130-450) 10^3/uL MPV 10.9 H (7.9-10.8) fL Sodium 136 (135-145) mmol/L Potassium 3.5 (3.5-4.5) mmol/L Chloride 106 (101-111) mmol/L Carbon Dioxide 26 (21-32) mmol/L Anion Gap 4.0 L (6-13) BUN 16 (6-20) mg/dL Creatinine 0.6 (0.6-1.3) mg/dL Estimated GFR (MDRD) 95 (>89) Glucose 83 (74-104) mg/dL Calcium 7.6 L (8.5-10.3) mg/dL Phosphorus 2.9 (2.5-5.0) mg/dL Magnesium 1.6 L (1.7-2.3) mg/dL Iron 23 L (50-212) ug/dL TIBC 181 L (250-450) ug/dL % Saturation 13 L (20-50) % Transferrin 129 L (203-362) mg/dL Ferritin 1106.6 H (11.0-306.8) ng/mL Total Bilirubin 0.6 (0.2-1.0) mg/dL AST 17 (10-42) IU/L ALT 11 (10-60) IU/L Alkaline Phosphatase 34 L (42-121) IU/L Total Protein 4.4 L (6.4-8.9) g/dL Albumin 2.5 L (3.2-5.5) g/dL Globulin 1.9 L (2.1-4.2) g/dL Albumin/Globulin Ratio 1.3 (1.0-2.2) Other Results/Comments Other Results/Comments: CSF cx: NGTD blood cx NGTD Sepsis Event Note (H) Evaluation Current Stage of Sepsis: Ruled out Assessment/Plan Problem List (1) Acute metabolic encephalopathy: Impression: 84 yo F with pmhx of etoh use disorder, PVD, afib, ? vasculitis rash on legs admitted with AMS, expressive and receptive aphasia, fever. CT head and CTA negative. LP obtained and pt started on broad spectrum abx and acyclovir empirically in case of MEDICAL SOCIOLOGIST infection. 1. toxic/metabolic encephalopathy, aphasia, r/o viral encephalitis: AMS continues to improve daily. Viral encephalitis remains in ddx. Also potential causes for AMS include B12 def, wernicke/korsakoff, CVA. - cont acyclovir - f/u HSV PCR - d/c vanc and meropenem - treat other reversible causes as listed below 2. chronic B12 deficiency, acute on chronic macrocytic anemia: currently being managed in outpt clinic- pt and report she has not been receiving B12 treatment in recent few years. H/H stable today. Fe studies show Fe sat 13%, consistent with some degree of Fe deficiency. Ferritin very high at 1106. - give B12 IM daily x 3 days while here - po Fe supp when infection ruled out 3. etoh use d/o, r/o Wernicke's: - s/p thiamine 500 mg iv TID x 1-2 days. Cont 250 iv daily x another 5 days - financial aid counselor on cessation 4. afib: CHADSVASc= 4, HAS bled= 4, fall risk. Tele with some episodes of irregular rhythm- suspect parox afib. - monitor on tele - repeat EKG - therapeutic lovenox 5. subacute embolic strokes: MRI showed Scattered areas of subacute infarction can be seen involving the deep white matter of both cerebral hemispheres, right worse than left. Likely due to afib. TTE with normal LVEF, normal valves, no clot. CTA of head and neck showed no large vessel occlusions. - lovenox for now- plan transition to DOAC prior to d/c - discussed risks and benefits of anticoagulation with , including GI and intracranial bleed, and he agrees with this treatment - start statin 6. rash on legs and feet: appears leukocytoclastic ? vasculitis. Rash is chronic x years. - obtain vasculitis labs- ESR, CRP, ANCAs, MICHEL, C3, C4, hep B, C, RF - review prior outpt management dvt ppx: lovenox Dispo plan and GOC: Came from home with . Pending improvement in AMS. PT eval- may need [facility] vs SNF
[2024-02-04 06:13] LABS: BASOPHILS % (AUTO) 0.5 %; HCT - HEMATOCRIT 29.2 % (37.0-47.0); HGB - HEMOGLOBIN 9.3 g/dL (12.0-16.0); LYMPHOCYTES % (AUTO) 22.7 %; MEAN CORPUSCULAR HEMOGLOBIN 33.5 pg (27.0-31.0); MEAN CORPUSCULAR HGB CONC 31.8 g/dL (32.0-36.0); MEAN PLATELET VOLUME 11.9 fL (7.9-10.8); MONOCYTES % (AUTO) 13.9 %; NEUTROPHILS % (AUTO) 61.4 %; PLT - PLATELET COUNT 155 10^3/uL (130-450); RED BLOOD COUNT 2.78 10^6/uL (4.20-5.40); RED CELL DISTRIBUTION WIDTH 15.4 % (12.0-15.0); WHITE BLOOD COUNT 10.4 x10^3/uL (4.8-10.8)
[2024-02-04 06:43] LABS: CALCIUM 8.1 mg/dL (8.5-10.3); CREATININE 0.6 mg/dL (0.6-1.3); MAGNESIUM 1.8 mg/dL (1.7-2.3); POTASSIUM 4.1 mmol/L (3.5-4.5)
[2024-02-04 06:51] LABS: RHEUMATOID FACTOR POSITIVE (Negative)
[2024-02-04 06:53] LABS: ABNORMAL LYMPHS % (MANUAL) 1 %; BAND NEUTROPHILS % (MANUAL) 1 %; BASOPHILS # (MANUAL) 0.1 10^3/uL (0-0.1); BASOPHILS % (MANUAL) 1 %; EOSINOPHILS # (MANUAL) 0.1 10^3/uL (0-0.7); LYMPHOCYTES # (MANUAL) 2.6 10^3/uL (1.5-3.5); LYMPHOCYTES % (MANUAL) 24 %; MONOCYTES # (MANUAL) 0.7 10^3/uL (0.0-1.0); NEUTROPHILS # (MANUAL) 6.9 10^3/uL (1.5-6.6)
[2024-02-04 06:54] LABS: DIFFERENTIAL COMMENT MANUAL DIFFERENTIAL; PLATELET ESTIMATE, MANUAL NORMAL (130-450,000) (NORMAL); PLATELET MORPHOLOGY NORMAL APPEARANCE (NORMAL); RBC MORPHOLOGY (MULTIPLE) 2+ STOMATOCYTES (NORMAL); WBC MORPHOLOGY (MULTIPLE) NORMAL APPEARANCE (NORMAL)
[2024-02-04] MEDS: CYANOCOBALAMIN 1,000 MCG/ML VIAL IM ONE (11:21)
--- NOTE | 2024-02-04 16:43 | PROVIDER PROGRESS NOTE ---
Subjective Prog Note Date Prog Note Date: 02/04/24 Prog Note Time: 16:34 Subjective Subjective: Pt has no complaints today. Up to chair. Good po intake. Voiding without palma. More coherent and oriented today but stil forgetful and confused at times. Stated she had just eaten shrimp for dinner around noon today. at bedside and interested in having pt sign POA forms for financial reasons, planning to have airplane engineer come to hospital to complete POA paperwork. Son at bedside. Current Medications Current Medications Current Medications: Current Medications Generic Name Dose Route Start Last Admin Trade Name Freq PRN Reason Stop Dose Admin Acetaminophen 1,000 mg 02/03/24 11:39 Acetaminophen 500 Mg Tablet PO Q6H PRN Pain or Fever > 38C (100.4F) Atorvastatin Calcium 40 mg 01/31/24 21:00 02/03/24 23:08 Atorvastatin 40 Mg Tablet PO 40 mg QPM MEHUL Administration Docusate Sodium 250 - 500 mg 02/03/24 09:00 02/04/24 08:36 Docusate Sodium 250 Mg Capsule PO Not Given DAILY MEHUL Enoxaparin Sodium 60 mg 02/02/24 21:00 02/04/24 08:36 Enoxaparin 60 Mg/0.6 Ml Syringe SUBQ 60 mg BID MEHUL Administration Acyclovir 550 mg/ Sodium 261 mls @ 250 mls/hr 02/01/24 12:30 02/04/24 13:57 Chloride IV Infused Q12H MEHUL Infusion Thiamine HCl 250 mg/ Sodium 52.5 mls @ 100 mls/hr 02/03/24 09:00 02/04/24 12:10 Chloride IV 02/07/24 08:59 Infused DAILY MEHUL Infusion Magnesium Oxide 400 mg 02/02/24 20:00 02/04/24 07:47 Magnesium Oxide 400 Mg Tablet PO 02/05/24 19:59 400 mg DAILYWM MEHUL Administration Polyethylene Glycol 17 gm 02/03/24 09:00 02/04/24 08:36 Polyethylene Glycol 3350 17 Gm Packet PO Not Given DAILY MEHUL Senna 8.6 - 17.2 mg 02/03/24 09:00 02/04/24 08:37 Senna 8.6 Mg Tablet PO Not Given DAILY MEHUL Objective Vital Signs/Intake & Output Reviewed Vital Signs: Yes Vital Signs: Vital Signs x48h Temp Pulse Resp BP Pulse Ox 02/04/24 16:17 36.8 C 85 18 127/61 95 02/04/24 13:25 36.5 C 90 18 108/59 L 97 Intake & Output: Intake & Output 02/02/24 02/03/24 02/04/24 02/05/24 05:59 05:59 05:59 05:59 Intake Total 2408 / 2408 2925 / 2925 1629.5 / 1629.5 1043.5 / 1043.5 Output Total 2315 / 2315 950 / 950 1850 / 1850 300 / 300 Balance 93 / 93 1974 / 1974 -220.5 / -220.5 743.5 / 743.5 Objective Comments/Other: older woman, NAD, sclera anicteric, MMM, LCTAB, nonlabored RRR, S1S2, no edema abd soft, NT, ND, BS+ alert, oriented to person, place, date, confused at times. normal tone, no tremor skin: morbiliform/leukocytoclastic erythematous rash diffusely over lower legs and feet, PT pules 2+, no edema, no ulcers or skin breakdown Lab Results 02/04/24 05:27 02/04/24 05:27 Other Labs: Lab Results x24hrs 02/04/24 02/01/24 Range/Units 05:27 11:20 WBC 10.4 (4.8-10.8) x10^3/uL RBC 2.78 L (4.20-5.40) 10^6/uL Hgb 9.3 L (12.0-16.0) g/dL Hct 29.2 L (37.0-47.0) % MCV 105.0 H (81.0-99.0) fL MCH 33.5 H (27.0-31.0) pg MCHC 31.8 L (32.0-36.0) g/dL RDW 15.4 H (12.0-15.0) % Plt Count 155 (130-450) 10^3/uL MPV 11.9 H (7.9-10.8) fL Neut # (Auto) Not Reportable Lymph # (Auto) Not Reportable [place] # (Auto) Not Reportable Eos # (Auto) Not Reportable Baso # (Auto) Not Reportable Absolute Nucleated RBC Not Reportable Total Counted 100 Band Neuts % (Manual) 1 (0 - 10) % Abnorm Lymph % (Manual) 1 % Nucleated RBC % Not Reportable Neutrophils # (Manual) 6.9 H (1.5-6.6) 10^3/uL Lymphocytes # (Manual) 2.6 (1.5-3.5) 10^3/uL Monocytes # (Manual) 0.7 (0.0-1.0) 10^3/uL Eosinophils # (Manual) 0.1 (0-0.7) 10^3/uL Basophils # (Manual) 0.1 (0-0.1) 10^3/uL Differential Comment MANUAL DIFFERENTIAL WBC Morphology NORMAL APPEARANCE (NORMAL) Platelet Estimate NORMAL (130-450,000) (NORMAL) Platelet Morphology NORMAL APPEARANCE (NORMAL) RBC Morph Micro Appear 2+ STOMATOCYTES (NORMAL) Sodium 137 (135-145) mmol/L Potassium 4.1 (3.5-4.5) mmol/L Chloride 105 (101-111) mmol/L Carbon Dioxide 28 (21-32) mmol/L Anion Gap 4.0 L (6-13) BUN 16 (6-20) mg/dL Creatinine 0.6 (0.6-1.3) mg/dL Estimated GFR (MDRD) 95 (>89) Glucose 105 H (74-104) mg/dL Calcium 8.1 L (8.5-10.3) mg/dL Magnesium 1.8 (1.7-2.3) mg/dL Rheumatoid Factor POSITIVE A (Negative) Miscellaneous Test COMMENT (.) Other Results/Comments Other Results/Comments: CSF cx: NGTD blood cx NGTD Sepsis Event Note (H) Evaluation Current Stage of Sepsis: Ruled out Assessment/Plan Problem List (1) Acute metabolic encephalopathy: Impression: 84 yo F with pmhx of etoh use disorder, PVD, afib, ? vasculitis rash on legs admitted with AMS, expressive and receptive aphasia, fever. CT head and CTA negative. 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 1. toxic/metabolic encephalopathy, aphasia, r/o viral encephalitis: AMS continues to improve daily. Viral encephalitis remains in ddx. Also potential causes for AMS include B12 def, wernicke/korsakoff, CVA. - cont acyclovir - f/u HSV PCR- expect result to return as early as Fri per lab - treat other reversible causes as listed below - I noted to pt appears to lack capacity for complex legal decisions at the moment given waxing and waning confusion, lack of insight. Given continued improvement in mentation, she will likely be able to complete these tasks in the coming days- weeks. 2. chronic B12 deficiency, acute on chronic macrocytic anemia: Fe studies show Fe sat 13%, consistent with some degree of Fe deficiency. Ferritin very high at 1106. H/H stable. S/p 3 days B12 IM. - weekly IM injections 1000 mcg for the next 1-3 months is appropriate given severe encephalopathy due in part to B12 def - po Fe supp when infection ruled out 3. etoh use d/o, r/o Wernicke's: - s/p thiamine 500 mg iv TID x 1-2 days. Cont 250 iv daily x another 5 days - estate planning counselor on cessation 4. afib: CHADSVASc= 4, HAS bled= 4, fall risk. EKG NSR today. Tele with intermittent episodes of irregular rhythm, likely afib. - monitor on tele - therapeutic lovenox 5. subacute embolic strokes: MRI showed Scattered areas of subacute infarction can be seen involving the deep white matter of both cerebral hemispheres, right worse than left. Likely due to afib. TTE with normal LVEF, normal valves, no clot. CTA of head and neck showed no large vessel occlusions. - lovenox for now- plan transition to DOAC prior to d/c - statin 6. rash on legs and feet: appears leukocytoclastic ? vasculitis. Rash is chronic x years. - f/u vasculitis labs- ESR, CRP, ANCAs, MICHEL, C3, C4, hep B, C, RF - review prior outpt management dvt ppx: lovenox Dispo plan and GOC: Came from home with . Pending improvement in AMS. PT eval- may need [facility] vs SNF
[2024-02-05] MEDS ORDERED: SODIUM CHLORIDE 0.9% 250 ML IV ONE (00:36)
[2024-02-05 03:12] LABS: HBsAG SCREEN Negative (Negative); HEPATITIS B SURFACE AB QUAL Non Reactive (.)
[2024-02-05 04:10] LABS: COMPLEMENT C3 110 mg/dL (82-167); COMPLEMENT C4 16 mg/dL (12-38); RPR Non Reactive (Non Reactive)
[2024-02-05] MEDS ORDERED: SODIUM CHLORIDE 0.9% 50 ML IV ONE (10:00)
--- NOTE | 2024-02-05 14:17 | PROVIDER PROGRESS NOTE ---
Subjective Prog Note Date Prog Note Date: 02/05/24 Prog Note Time: 14:04 Subjective Subjective: No acute events. mild pain around iv in R arm. Tolerating po intake. Up to chair. Pt more coherent and communicative today. Not happy about plan to go to SNF for rehab but agrees it is in her best interests. Current Medications Current Medications Current Medications: Current Medications Generic Name Dose Route Start Last Admin Trade Name Freq PRN Reason Stop Dose Admin Acetaminophen 1,000 mg 02/03/24 11:39 Acetaminophen 500 Mg Tablet PO Q6H PRN Pain or Fever > 38C (100.4F) Atorvastatin Calcium 40 mg 01/31/24 21:00 02/04/24 20:33 Atorvastatin 40 Mg Tablet PO 40 mg QPM MEHUL Administration Docusate Sodium 250 - 500 mg 02/03/24 09:00 02/05/24 10:08 Docusate Sodium 250 Mg Capsule PO Not Given DAILY MEHUL Enoxaparin Sodium 60 mg 02/02/24 21:00 02/05/24 10:08 Enoxaparin 60 Mg/0.6 Ml Syringe SUBQ 60 mg BID MEHUL Administration Thiamine HCl 250 mg/ Sodium 52.5 mls @ 100 mls/hr 02/03/24 09:00 02/05/24 13:16 Chloride IV 02/07/24 08:59 Infused DAILY MEHUL Infusion Magnesium Oxide 400 mg 02/02/24 20:00 02/05/24 10:09 Magnesium Oxide 400 Mg Tablet PO 02/05/24 19:59 400 mg DAILYWM MEHUL Administration Polyethylene Glycol 17 gm 02/03/24 09:00 02/05/24 10:08 Polyethylene Glycol 3350 17 Gm Packet PO 17 gm DAILY MEHUL Administration Senna 8.6 - 17.2 mg 02/03/24 09:00 02/05/24 10:09 Senna 8.6 Mg Tablet PO 17.2 mg DAILY MEHUL Administration Objective Vital Signs/Intake & Output Reviewed Vital Signs: Yes Vital Signs: Vital Signs x48h Temp Pulse Resp BP Pulse Ox 02/05/24 09:00 36.8 C 90 18 133/65 H 96 Intake & Output: Intake & Output 02/03/24 02/04/24 02/05/24 02/06/24 05:59 05:59 05:59 05:59 Intake Total 2925 / 2925 1629.5 / 1629.5 1804.5 / 1804.5 753.5 / 753.5 Output Total 950 / 950 1850 / 1850 2024 / 2024 1575 / 1575 Balance 1974 / 1974 -220.5 / -220.5 -220.5 / -220.5 -821.5 / -821.5 Objective Comments/Other: older woman, NAD, sclera anicteric, MMM, LCTAB, nonlabored RRR, S1S2, no edema abd soft, NT, ND, BS+ alert, oriented to person, place, date, knows president, recalls events of prior days and has insight into current condition. Memory and attention much improved over past several days. skin: morbiliform/leukocytoclastic erythematous rash diffusely over lower legs and feet, PT pules 2+, no edema, no ulcers or skin breakdown Lab Results 02/04/24 05:27 02/04/24 05:27 Other Labs: Lab Results x24hrs 02/04/24 Range/Units 05:27 Vitamin D 25-Hydroxy 4.0 L (30.0-100.0) ng/mL Complement C3 110 (82-167) mg/dL Complement C4 16 (12-38) mg/dL RPR Non Reactive (Non Reactive) Hep Bs Antigen Negative (Negative) Hep Bs Antibody Non Reactive (.) Hep B Core Total Ab Negative (Negative) Hepatitis C Antibody 2 Non Reactive (Non Reactive) Other Results/Comments Other Results/Comments: CSF cx: NGTD blood cx NGTD CSF HSV 1&2 PCR neg Sepsis Event Note (H) Evaluation Current Stage of Sepsis: Ruled out Assessment/Plan Problem List (1) Acute metabolic encephalopathy: Impression: 84 yo F with pmhx of etoh use disorder, PVD, afib, ? vasculitis rash on legs admitted with AMS, expressive and receptive aphasia, fever. CT head and CTA negative. LP obtained and pt started on broad spectrum abx and acyclovir empirically in case of SUPER[employer]OR [employer] M[employer] infection. 1. toxic/metabolic encephalopathy, aphasia, r/o viral encephalitis: AMS continues to improve daily, now likely back a recent baseline. HSV encephalitis ruled out. Suspect AMS was due to multiple factors- B12 def, wernicke's, CVA, etoh abuse. - d/c acyclovir - treat other reversible causes as listed below - Pt's plans to complete POA documents with pt and their clinical nurse occupational medicine. I noted to and pt that she now has capacity to make decisions, including assigning a POA. 2. chronic B12 deficiency, acute on chronic macrocytic anemia: Fe studies show Fe sat 13%, consistent with some degree of Fe deficiency. Ferritin very high at 1106. H/H stable. S/p 3 days B12 IM. - weekly IM injections 1000 mcg for the next 1-3 months is appropriate given severe encephalopathy due in part to B12 def - start po Fe supp MWF with stool softener 3. etoh use d/o, r/o Wernicke's: - s/p thiamine 500 mg iv TID x 1-2 days. Cont 250 iv daily x another 5 days - counseled on cessation 4. parox afib: CHADSVASc= 4, HAS bled= 4, fall risk. EKG NSR today. Tele with intermittent episodes of irregular rhythm, likely afib. - d/c tele - therapeutic lovenox - switch to apixaban today 5. subacute embolic strokes: MRI showed Scattered areas of subacute infarction can be seen involving the deep white matter of both cerebral hemispheres, right worse than left. Likely due to afib. TTE with normal LVEF, normal valves, no clot. CTA of head and neck showed no large vessel occlusions. - statin and DOAC 6. rash on legs and feet: appears leukocytoclastic ? vasculitis. Rash is chronic x years. RF +, complements wnl, RPR NR, hepBsAg -, hep C - - f/u vasculitis labs- ESR, CRP, ANCAs, MICHEL - outpt follow up dvt ppx: lovenox Dispo plan and GOC: Came from home with . Plan d/c to SNF for short term rehab Thursday am F/u PMD
[2024-02-05] MEDS: APIXABAN 2.5 MG TABLET PO SCH (21:15)
--- NOTE | 2024-02-06 08:07 | Discharge Summary ---
Discharge Summary Admit Date: 01/31/24 Discharge Date: 02/06/24 Discharging Provider: Martín Cummings Primary Care Provider: Kenia Avendaño Code Status: Attempt Resuscitation DIAGNOSES Admission Diagnoses: Combined receptive and expressive aphasia r/o CVA Acute metabolic encephalopathy now onset Atrial fibrillation Leukocytosis Anemia, B12 deficiency Chronic alcohol use disorder Hypertension Hyperlipidemia Peripheral vascular disease Discharge Diagnoses with Status of Each Condition: subacute strokes, suspect embolic Combined receptive and expressive aphasia, resolved Acute metabolic encephalopathy, resolved now onset Atrial fibrillation Leukocytosis, resolved Anemia, B12 deficiency Chronic alcohol use disorder r/o Wernicke's Hypertension Hyperlipidemia Peripheral vascular disease suspect vasculitic rash on legs and feet HPI History of Present Illness: Patient is a 83-year-old female with a history of vitamin B12 deficiency, chronic alcohol use, peripheral vascular disease who presented after family found her confused and speaking and what was described as "word salad". When patient was seen, she was turning towards voice, but was unable to provide any meaningful history. Her home phone number, as well as her next of kin phone number, has been Sonny Naidu was tried for further history, without success. Due to her history of chronic alcohol use, there was some concern for Warnicke's encephalopathy. She was started on high-dose IV thiamine supplementation at that time. Due to this possible expressive aphasia, patient was worked up for stroke. Last known normal was 8 PM last night according to a family member. On admission, patient was vitally stable, blood pressure was 137/84, heart rate was in the 100s. Her EKG did show some evidence of atrial fibrillation, although this is not a diagnosis she carries. Her pulse was 110-[address] head and CTA were done which did not show any acute abnormalities. HOSPITAL COURSE Hospital Course: 1. toxic/metabolic encephalopathy: Initial differential was broad, including OPERATOR [employer]OUND BASED [employer] DEFENCE infection. Pt had no meningeal signs on exam. She presented with a wbc of 14 and spiked a fever on hospital day 1. LP was done and O[employer] analysis returned wbc 10, protein 92, GS neg, culture negative. The pt was started on empiric antibiotic to cover bacterial meningitis and acyclovir until cultures returned negative. HSV 1 and 2 PCR returned negative. Suspect AMS was due to multiple factors- B12 def, wernicke's, CVAs, etoh abuse. Her mentation improved gradually over the course of her stay with the treatments listed below. By time of discharge pt was AAOx3. 2. subacute embolic strokes: MRI showed Scattered areas of subacute infarction can be seen involving the deep white matter of both cerebral hemispheres, right worse than left. Likely embolic due to afib. TTE with normal LVEF, normal valves, no clot. CTA of head and neck showed no large vessel occlusions. After discussion of the risks and benefits with pt and her , she decided to start anticoagulation. She was treated initially with theapeutic lovenox and then transitioned to apixaban. 3. parox afib- new onset: CHADSVASc= 4, HAS bled= 4, fall risk. Tele with intermittent episodes of irregular rhythm, likely afib. Anticoagulation as listed above. Pt is rate controlled without medications. When she is discharged from SNF, consider readdressing risks and benefits of anticoagulation based on her ongoing fall risk. She is at high risk for recurrent stroke, so anticoagulation will benefit her unless very strong contraindications arise. 4. chronic B12 deficiency, acute on chronic macrocytic anemia: Pt has known h/o B12 deficiency but had not been receiving treatment in recent months-years. Her B12 level here was 127. She was given IM B12 injections daily x 3 days and then started on daily po supplements. Fe studies show Fe sat 13%, consistent with some degree of Fe deficiency. Ferritin very high at 1106. Would repeat iron studies as outpt in a few weeks and determine if need for Fe supp. 5. etoh use d/o, r/o Wernicke's: Pt was treated with thiamine 500 mg iv TID x 2 days, then 250 iv daily for 3 days. She was prescribed po thiamine and MVI on discharge. She was counseled on etoh cessation. 6. rash on legs and feet: appears leukocytoclastic, possibly vasculitis. Rash is chronic x years. RF +, complements wnl, RPR NR, hepBsAg -, hep C - Other w/u for vasculitis pending at time of discharge- ESR, CRP, ANCAs, MICHEL. This condition can be followed up in the outpt setting. 7. Vitamin D deficiency: 25 hydroxy vitamin D level 4. Started daily cholecalciferol supplements. ALLERGIES Allergies Allergy/AdvReac Type Severity Reaction Status Date / Time Penicillins Allergy Unknown Unknown Verified 01/31/24 10:32 milk AdvReac Intermediate Diarrhea Verified 02/03/24 13:09 MEDICATIONS Ambulatory Orders Medication Instructions Recorded Confirmed apixaban 2.5 mg tablet (Eliquis) 2.5 mg PO BID #60 tabs 02/06/24 atorvastatin 40 mg tablet 40 mg PO QPM #30 tabs 02/06/24 cyanocobalamin (vitamin B-12) 1,000 mcg PO DAILY #30 tabs 02/06/24 1,000 mcg tablet multivitamin 1 tab PO DAILY #30 tabs 02/06/24 polyethylene glycol 3350 17 gram 17 g PO DAILY #14 ea 02/06/24 oral powder packet thiamine HCl (vitamin B1) 100 mg 100 mg PO DAILY #30 tabs 02/06/24 tablet PHYSICAL EXAM AT DISCHARGE Physical Exam Other/Comments: older woman, NAD, sclera anicteric, MMM, LCTAB, nonlabored RRR, S1S2, no edema abd soft, NT, ND, BS+ alert, oriented x 3, Memory and attention much improved over past several days. skin: morbiliform/leukocytoclastic erythematous rash diffusely over lower legs and feet, PT pules 2+, no edema, no ulcers or skin breakdown LABS 02/04/24 05:27 02/04/24 05:27 SEPSIS Current Stage of Sepsis: Ruled out TIME SPENT Time Spent in Discharge (Minutes): 35 Discharge Plan Discharge Patient Disposition: DC/Xfer Condition: Stable Medically Cleared Date:: 02/06/24 Prescriptions: New Eliquis 2.5 mg Tablet 2.5 mg PO BID Qty: 60 0RF atorvastatin 40 mg Tablet 40 mg PO QPM Qty: 30 0RF polyethylene glycol 3350 17 gram Powder In Packet 17 g PO DAILY Qty: 14 0RF thiamine HCl (vitamin B1) 100 mg tablet 100 mg PO DAILY Qty: 30 0RF multivitamin Tablet 1 tab PO DAILY Qty: 30 0RF cyanocobalamin (vitamin B-12) 1,000 mcg tablet 1,000 mcg PO DAILY Qty: 30 0RF Discontinued simvastatin 20 mg tablet 20 mg PO QDAY Patient Comments: take 1 tablet by mouth at bedtime hydrochlorothiazide 25 mg tablet 25 mg PO QAM Patient Comments: take 1 tablet by mouth daily Activity Restrictions: Activity as Tolerated Diet: Regular Print Language: Ivorian Patient Instructions: Addiction Alcohol, Stroke Prevent Live W Atrial Fib Stand Alone Forms: SNF Discharge Follow-up Care: Kateryna,Kenia A, PORTABLE MACHINE SANDER [Provider Admit Priv/Credential] - (Schedule an appointment when you are discharged from long term facility.)
[2024-02-06 09:51] VITALS: O2SAT 98
[2024-02-06] MEDS: SODIUM CHLORIDE 0.9% IV ONE (11:11)
[2024-02-06] MEDS: THIAMINE IV ONE (11:11)
[2024-02-08 12:09] LABS: ATYPICAL pANCA <1:20 titer (Neg:<1:20); CYTOPLASMIC (C-ANCA) <1:20 titer (Neg:<1:20); PERINUCLEAR (P-ANCA) <1:20 titer (Neg:<1:20)
[2024-02-09 13:11] LABS: ANTINUCLEAR ANTIBODIES IFA Negative (.)
== END 2024-02-06 09:40 | DRG 91 ==
LOC: ED 09:58 → MS2 13:55
PROVIDERS: ADMIT Internal Medicine; ATTEND Internal Medicine
DX: I25.2 Old myocardial infarction; E55.9 Vitamin D deficiency, unspecified; Z79.899 Other long term (current) drug therapy; D72.829 Elevated white blood cell count, unspecified; I48.0 Paroxysmal atrial fibrillation; E51.2 Wernicke's encephalopathy; Z79.01 Long term (current) use of anticoagulants; I48.92 Unspecified atrial flutter; F10.10 Alcohol abuse, uncomplicated; I10 Essential (primary) hypertension; I77.6 Arteritis, unspecified; R47.01 Aphasia; G92.8 Other toxic encephalopathy; D51.9 Vitamin B12 deficiency anemia, unspecified; I73.9 Peripheral vascular disease, unspecified; I63.40 Cerebral infarction due to embolism of unspecified cerebral artery; G93.41 Metabolic encephalopathy; I48.91 Unspecified atrial fibrillation; E78.5 Hyperlipidemia, unspecified